=== PATIENT | male | born 1935 ===

== ENCOUNTER 2016-08-27 07:54 | Day surgery (SDC) | payer MEDICARE ==
[2016-08-20 11:30] VITALS: BMI 25.5
[2016-08-27] MEDS ORDERED: Propofol 10 mg/ml Inj (20 ML) ONE ×2 (09:32→09:33)
[2016-08-27] MEDS ORDERED: Lactated Ringer's 1,000 ML IV SCH (10:15)
[2016-08-27 13:50] VITALS: BP 142/74; PULSE 62; RESP 16; TEMP 98; O2SAT 98
== END 2016-08-27 11:55 | disposition home or self-care (01) ==
LOC: ENDO 07:54
PROVIDERS: ATTEND Specialist
DX: Z12.11 Encounter for screening for malignant neoplasm of colon (principal); K59.00 Constipation, unspecified; K57.30 Diverticulosis of large intestine without perforation or abscess without bleeding; K64.8 Other hemorrhoids; E11.9 Type 2 diabetes mellitus without complications; I25.10 Atherosclerotic heart disease of native coronary artery without angina pectoris; I10 Essential (primary) hypertension; E78.5 Hyperlipidemia, unspecified
CPT/HCPCS: 45378; 82948; J2704; J7120

== ENCOUNTER 2018-02-03 17:09 | Observation (INO) | payer MEDICAID, MEDICARE ==
[2018-02-03 17:17] VITALS: BMI 22.1
--- NOTE | 2018-02-03 17:29 | ED PDOC ---
Arrival/HPI - General Chief Complaint: Shortness Of Breath Time Seen by Provider: 02/03/18 17:15 Historian: Patient - History of Present Illness Narrative History of Present Illness (Text): 02/03/18 17:29 Patient is a 82 year old male who presents to the Emergency department with his for chest pain and shortness of breath evaluation. Patient is primarily Japanese speaking and is a poor historian. He reports that his symptoms started 2 months ago and states that his symptoms started 2 months ago. He notes having a history of anemia. Patient denies fevers, chills, cough, abdominal pain, nausea, vomiting, diarrhea, back pain, neck pain, headache, dizziness, or any other complaint. PMD: Time/Duration: > month Symptom Onset: Gradual Symptom Course: Unchanged Context: Home Past Medical History - Provider Review Nursing Documentation Reviewed: Yes - Infectious Disease Hx of Infectious Diseases: None - Tetanus Immunization Tetanus Immunization: Unknown - Cardiac Hx Hypertension: Yes Hx Pacemaker: No - Neurological Hx Paralysis: No - Endocrine/Metabolic Hx Diabetes Mellitus Type 2: Yes - Hematological/Oncological Hx Blood Transfusions: No Hx Blood Transfusion Reaction: No - Musculoskeletal/Rheumatological Hx Musculoskeletal Disorders: Yes Other/Comment: amputation - Gastrointestinal Hx Constipation: Yes - Genitourinary/Gynecological Hx Reproductive Disorders: No - Psychiatric Hx Psychophysiologic Disorder: No Hx Substance Use: No - Surgical History Other/Comment: R toe amputation - Anesthesia Hx Anesthesia: Yes Hx Anesthesia Reactions: No Hx Malignant Hyperthermia: No - Suicidal Assessment Feels Threatened In Home Enviroment: No Family/Social History - Physician Review Nursing Documentation Reviewed: Yes Family/Social History: No Known Family HX Smoking Status: Never Smoked Hx Alcohol Use: No Hx Substance Use: No Allergies/Home Meds Allergies/Adverse Reactions: Allergies No Known Allergies Allergy (Verified 06/28/14 12:42) Home Medications: Home Meds Medication Instructions Recorded Confirmed RX: Metoprolol Tartrate [Lopressor] 25 mg PO BID 07/05/14 02/03/18 RX: Glipizide [Glipizide Xl] 10 mg PO DAILY 08/20/16 02/03/18 RX: Lisinopril [Zestril] 40 mg PO DAILY 08/20/16 02/03/18 RX: Tamsulosin [Flomax] 0.4 mg PO DAILY 08/20/16 02/03/18 RX: metFORMIN [glucOPHAGE] 850 mg PO BID 08/20/16 02/03/18 RX: SITagliptin [Januvia] 1 tab PO DAILY 02/03/18 02/03/18 RX: amLODIPine [Norvasc] 1 tab PO DAILY 02/03/18 02/03/18 Review of Systems - Physician Review All systems were reviewed & negative as marked: Yes - Review of Systems Constitutional: absent: Fevers, Night Sweats Respiratory: SOB. absent: Cough Cardiovascular: Chest Pain Gastrointestinal: absent: Abdominal Pain, Diarrhea, Nausea, Vomiting Genitourinary Male: absent: Urinary Output Changes Musculoskeletal: absent: Back Pain, Neck Pain Neurological: absent: Headache, Dizziness Physical Exam Vital Signs Reviewed: Yes Temperature: Afebrile Blood Pressure: Hypertensive Pulse: Regular Respiratory Rate: Normal Appearance: Positive for: Well-Appearing Mental Status: Positive for: Alert and Oriented X 3 - Systems Exam Head: Present: Atraumatic, Normocephalic Pupils: Present: PERRL Extroacular Muscles: Present: EOMI Conjunctiva: Present: Normal Mouth: Present: Moist Mucous Membranes Neck: Present: Normal Range of Motion Respiratory/Chest: Present: Clear to Auscultation, Good Air Exchange. No: Respiratory Distress, Accessory Muscle Use Cardiovascular: Present: Regular Rate and Rhythm, Normal S1, S2. No: Murmurs Abdomen: No: Tenderness, Distention, Peritoneal Signs Back: Present: Normal Inspection Upper Extremity: Present: Normal Inspection. No: Cyanosis, Edema Lower Extremity: Present: Normal Inspection. No: Edema Neurological: Present: GCS=15, CN II-XII Intact, Speech Normal Skin: Present: Warm, Dry, Normal Color. No: Rashes Psychiatric: Present: Alert, Oriented x 3, Normal Insight, Normal Concentration Medical Decision Making ED Course and Treatment: 02/03/18 17:29 Impression: Patient is a 82 year old male who is complaining of chest pain and shortness of breath for the past 2 months. Differential Diagnosis included but are not limited to: Plan: -- EKG -- Cardiac enzymes -- Blood work -- Labs -- Chest X-ray -- Urinalysis -- Reassess and disposition Prior Visits: Notes and results from previous visits were reviewed. Progress Notes: 02/03/18 17:31 EKG shows NSR at [address]/T wave changes. No changes from previous in 2015. Interpreted by me. 02/03/18 18:29 Discussed case with , who is aware of and agrees to admit patient under her service. - Lab Interpretations I have reviewed the lab results: Yes - RAD Interpretation Narrative RAD Interpretations (Text): 02/03/18 17:38 Chest X-ray shows no acute diseases or processes. Interpreted by me. Supervisor [employer]: ED Physician - EKG Interpretation Interpreted by ED Physician: Yes Type: 12 lead EKG - Scribe Statement The provider has reviewed the documentation as recorded by the Scribe Lawrence Lopez Provider Scribe Attestation: All medical record entries made by the Scribe were at my direction and personally dictated by me. I have reviewed the chart and agree that the record accurately reflects my personal performance of the history, physical exam, medical decision making, and the department course for this patient. I have also personally directed, reviewed, and agree with the discharge instructions and disposition. Disposition/Present on Arrival - Present on Arrival Any Indicators Present on Arrival: No History of DVT/PE: No History of Uncontrolled Diabetes: No Urinary Catheter: No History of Decub. Ulcer: No History Surgical Site Infection Following: None - Disposition Have Diagnosis and Disposition been Completed?: Yes Diagnosis: Chest pain Disposition: HOSPITALIZED Disposition Time: 12:30 Condition: STABLE
[2018-02-03 18:06] LABS: BASO # 0.06 K/mm3 (0.0-2.0); BASO % 0.7 % (0.0-3.0); EOS # 0.1 (0.0-0.7); EOS % 1.5 % (1.5-5.0); GRAN # 5.23 (1.4-6.5); GRAN % 64.6 % (50.0-68.0); HEMOGLOBIN 10.2 g/dL (14.0-18.0); LYMPH # 1.7 (1.2-3.4); LYMPH % 21.3 % (22.0-35.0); MEAN CELL VOLUME 96.3 fl (80.0-105.0); MEAN CORPUSCULAR HEMOGLOBIN 34.2 pg (25.0-35.0); MEAN CORPUSCULAR HGB CONC 35.5 g/dl (31.0-37.0); MEAN PLATELET VOLUME 10.7 fl (7.0-11.0); MONO % 11.9 % (1.0-6.0); RBC 2.98 10^6/uL (3.5-6.1); RED CELL DISTRIBUTION WIDTH 12.9 % (11.5-14.5); WHITE BLOOD COUNT 8.1 10^3/ul (4.5-11.0)
[2018-02-03 18:16] LABS: INR 1.04; PARTIAL THROMBOPLASTIN TIME 29.1 Seconds (25.1-36.5); PROTHROMBIN TIME 11.9 SECONDS (9.4-12.5)
[2018-02-03 18:20] LABS: ALBUMIN 3.7 g/dL (3.0-4.8)
[2018-02-03 18:32] LABS: TROPONIN I 0.02 ng/mL
[2018-02-03] MEDS: Insulin Reg-LOW-Coverage SC SCH (22:14)
[2018-02-03 22:28] LABS: URINE BILIRUBIN NEGATIVE (NEGATIVE); URINE BLOOD TRACE-INTACT (NEGATIVE); URINE GLUCOSE (UA) NEGATIVE (NEGATIVE); URINE LEUKOCYTE ESTERASE NEGATIVE Leu/uL (NEGATIVE); URINE PROTEIN 100 mg/dL (<30 mg/dL); URINE UROBILINOGEN 0.2 E.U./dL (<1 E.U./dL)
[2018-02-03 22:30] LABS: URINE APPEARANCE CLEAR (CLEAR); URINE COLOR YELLOW (YELLOW)
[2018-02-03 22:33] LABS: OSMOLALITY,URINE 341 mosm/kg (300-1000)
[2018-02-03 22:42] LABS: URINE EPITHELIAL CELLS 0 - 2 /hpf (0-5); URINE HYALINE CAST 0 - 2 /hpf; URINE RBC 0 - 2 /hpf (0-2); URINE WBC 0 - 2 /hpf (0-6)
[2018-02-03 22:53] LABS: IRON 71 ug/dL (45-180)
[2018-02-03 22:54] LABS: HDL CHOLESTEROL 22 mg/dL (29-60)
[2018-02-03 23:03] LABS: % IRON SATURATION 23 % (20-55); TOTAL IRON BINDING CAPACITY 304 ug/dL (261-462)
[2018-02-03 23:05] LABS: LDL CHOLESTEROL 67 mg/dL (0-129)
[2018-02-04] MEDS ORDERED: Magnesium Sulfate 2 gm/50 ml 2 GM/50 ML BAG IVPB ONE (05:27)
[2018-02-04 07:14] LABS: HEMOGLOBIN 10.1 g/dL (14.0-18.0); MEAN CELL VOLUME 96.6 fl (80.0-105.0); MEAN CORPUSCULAR HEMOGLOBIN 34.1 pg (25.0-35.0); MEAN CORPUSCULAR HGB CONC 35.3 g/dl (31.0-37.0); MEAN PLATELET VOLUME 10.7 fl (7.0-11.0); RBC 2.96 10^6/uL (3.5-6.1); WHITE BLOOD COUNT 7.4 10^3/ul (4.5-11.0)
[2018-02-04 07:32] LABS: BLOOD UREA NITROGEN 27 mg/dL (7-21); GFR NON-AFRICAN AMERICAN 58
--- NOTE | 2018-02-04 07:59 | CARD ---
APPROVED REPORT Date of service: 02/03/2018 EKG Measurement Heart [id number] <Conclusion> Sinus rhythm with 1st degree AV block Left anterior fascicular block Nonspecific T wave abnormality Abnormal ECG
--- NOTE | 2018-02-04 08:05 | CP.PCM.CON ---
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 Pt is somewhat poor historian changing details. But mostly, patient is complaining of chest pain and shortness of breath over the last 2 months. States that he feels symtoms all day long, worse at night when lying in bed. He can't really describe pain, but states that it is midsternal and non-radiating. He sometimes said that he feels the pain at night and occasionally with CP and SOB with exertion. He also states that CP is sometimes alleviated when he drinks water. He denies any tr ouble swallowing solids or liquids, weight loss, hematemesis, melena nor hematochezia. Reports an occasional cough. As far as BMs, he states that stool is either yellow or white and does reported intermittent constipation with his last BM 2-3 days ago. Per review, had CSPY on 08/27/16 with diverticulosis and internal hemorrhoids. 12 point ROS negative other than stated above MHx: See above SurgHx: R trans met amp Meds: Reviewed in MAR FamHx: Denied GI problems SocHx: Denied x3 All: NKDA Past Patient History - Infectious Disease Hx of Infectious Diseases: None - Tetanus Immunizations Tetanus Immunization: Unknown - Past Social History Smoking Status: Never Smoked - CARDIAC Hx Cardiac Disorders: Yes Hx Hypercholesterolemia: Yes Hx Hypertension: Yes - PULMONARY Hx Respiratory Disorders: No - NEUROLOGICAL Hx Neurological Disorder: No - HEENT Hx HEENT Problems: No - RENAL Hx Chronic Kidney Disease: No - ENDOCRINE/METABOLIC Hx Endocrine Disorders: Yes Hx Diabetes Mellitus Type 2: Yes - HEMATOLOGICAL/ONCOLOGICAL Hx Blood Disorders: No - INTEGUMENTARY Hx Dermatological Problems: No - MUSCULOSKELETAL/RHEUMATOLOGICAL Hx Musculoskeletal Disorders: No Hx Falls: No - GASTROINTESTINAL Hx Gastrointestinal Disorders: No - GENITOURINARY/GYNECOLOGICAL Hx Genitourinary Disorders: No - PSYCHIATRIC Hx Psychophysiologic Disorder: No - SURGICAL HISTORY Hx Surgeries: Yes Hx Amputation: Yes - ANESTHESIA Hx Anesthesia: Yes Hx Anesthesia Reactions: No Hx Malignant Hyperthermia: No Meds Allergies/Adverse Reactions: Allergies Allergy/AdvReac Type Severity Reaction Status Date / Time No Known Allergies Allergy Verified 06/28/14 12:42 - Medications Medications: Current Medications Amlodipine Besylate (Norvasc) 10 mg PO DAILY [facility] Glipizide (Glucotrol Xl) 10 mg PO DAILY [facility] Insulin Human Regular (Humulin R Low) 0 units SC ACHS [facility]; Protocol Last Admin: 02/03/18 22:14 Dose: Not Given Lisinopril (Zestril) 40 mg PO DAILY [facility] Metformin HCl (Glucophage) 850 mg PO BID [facility] Metoprolol Tartrate (Lopressor) 25 mg PO BID [facility] Sitagliptin Phosphate (Januvia) 50 mg PO DAILY [facility] Tamsulosin HCl (Flomax) 0.4 mg PO DAILY [facility] Physical Exam - Constitutional Appears: Well, Non-toxic, No Acute Distress, Chronically Ill - Head Exam Head Exam: ATRAUMATIC, NORMAL INSPECTION - Eye Exam Eye Exam: EOMI. absent: Conjunctival injection, Scleral icterus - ENT Exam ENT Exam: Mucous Membranes Moist. absent: Mucous Membranes Dry, Normal External Ear Exam - Respiratory Exam Respiratory Exam: Clear to Auscultation Bilateral, NORMAL BREATHING PATTERN. absent: Accessory Muscle Use, Chest Wall Tenderness - Cardiovascular Exam Cardiovascular Exam: REGULAR RHYTHM, RRR - GI/Abdominal Exam GI & Abdominal Exam: Normal Bowel Sounds, Soft, Tenderness (LLQ w/o guarding). absent: Bruit, Diminished Bowel Sounds, Distended, Firm, Guarding, Hernia, Orga nomegaly, Pulsatile Mass, Rebound, Rigid - Rectal Exam Rectal Exam: Deferred - Extremities Exam Extremities exam: Positive for: normal inspection. Negative for: pedal edema Additional comments: s/p R foot transmet amp - Neurological Exam Neurological exam: Alert, CN II-XII Intact - Psychiatric Exam Psychiatric exam: Normal Affect, Normal Mood - Skin Skin Exam: Normal Color, Warm Results - Vital Signs Recent Vital Signs: Last Vital Signs Temp 98.3 F 02/04/18 06:00 Pulse 60 02/04/18 06:00 Resp 19 02/04/18 06:00 BP 159/73 H 02/04/18 06:00 Pulse Ox 99 02/04/18 06:00 - Labs Result Diagrams: 02/04/18 06:30 02/04/18 06:30 Labs: Laboratory Results - last 24 hr 02/03/18 02/03/18 02/03/18 17:40 17:40 17:40 WBC 8.1 D RBC 2.98 L Hgb 10.2 L Hct 28.7 L MCV 96.3 MCH 34.2 MCHC 35.5 RDW 12.9 Plt Count 268 MPV 10.7 Gran % 64.6 Lymph % (Auto) 21.3 L [place] % (Auto) 11.9 H Eos % (Auto) 1.5 Baso % (Auto) 0.7 Gran # 5.23 Lymph # (Auto) 1.7 [place] # (Auto) 1.0 H Eos # (Auto) 0.1 Baso # (Auto) 0.06 PT 11.9 INR 1.04 APTT 29.1 Sodium 127 L Potassium 4.9 Chloride 92 L Carbon Dioxide 24 Anion Gap 16 BUN 31 H Creatinine 1.4 Est GFR ( Amer) 59 Est GFR (Non-Af Amer) 49 Random Glucose 161 H Serum Osmolality Calcium 9.0 Magnesium 1.6 L Iron TIBC % Saturation Total Bilirubin 0.7 AST 23 ALT 24 Alkaline Phosphatase 59 Lactate Dehydrogenase 414 Total Creatine Kinase 82 Troponin I 0.02 NT-Pro-B Natriuret Pep 312 Total Protein 7.2 Albumin 3.7 Globulin 3.5 Albumin/Globulin Ratio 1.0 L Triglycerides Cholesterol LDL Cholesterol Direct HDL Cholesterol TSH 3rd Generation Urine Color Urine Appearance Urine pH Ur Specific [place] Urine Protein Urine Glucose (UA) Urine Ketones Urine Blood Urine Nitrate Urine Bilirubin Urine Urobilinogen Ur Leukocyte Esterase Urine RBC Urine WBC Ur Epithelial Cells Urine Bacteria Hyaline Casts Urine Osmolality Ur Random Sodium 02/03/18 02/03/18 02/03/18 17:40 17:40 17:40 WBC RBC Hgb Hct MCV MCH MCHC RDW Plt Count MPV Gran % Lymph % (Auto) [place] % (Auto) Eos % (Auto) Baso % (Auto) Gran # Lymph # (Auto) [place] # (Auto) Eos # (Auto) Baso # (Auto) PT INR APTT Sodium Potassium Chloride Carbon Dioxide Anion Gap BUN Creatinine Est GFR ( Amer) Est GFR (Non-Af Amer) Random Glucose Serum Osmolality 275 Calcium Magnesium Iron 71 TIBC 304 % Saturation 23 Total Bilirubin AST ALT Alkaline Phosphatase Lactate Dehydrogenase Total Creatine Kinase Troponin I NT-Pro-B Natriuret Pep Total Protein Albumin Globulin Albumin/Globulin Ratio Triglycerides 180 H Cholesterol 128 L LDL Cholesterol Direct 67 HDL Cholesterol 22 L TSH 3rd Generation Urine Color Urine Appearance Urine pH Ur Specific [place] Urine Protein Urine Glucose (UA) Urine Ketones Urine Blood Urine Nitrate Urine Bilirubin Urine Urobilinogen Ur Leukocyte Esterase Urine RBC Urine WBC Ur Epithelial Cells Urine Bacteria Hyaline Casts Urine Osmolality Ur Random Sodium 02/03/18 02/03/18 02/04/18 22:17 22:17 06:30 WBC 7.4 RBC 2.96 L Hgb 10.1 L Hct 28.6 L MCV 96.6 MCH 34.1 MCHC 35.3 RDW 13.0 Plt Count 253 MPV 10.7 Gran % Lymph % (Auto) [place] % (Auto) Eos % (Auto) Baso % (Auto) Gran # Lymph # (Auto) [place] # (Auto) Eos # (Auto) Baso # (Auto) PT INR APTT Sodium Potassium Chloride Carbon Dioxide Anion Gap BUN Creatinine Est GFR ( Amer) Est GFR (Non-Af Amer) Random Glucose Serum Osmolality Calcium Magnesium Iron TIBC % Saturation Total Bilirubin AST ALT Alkaline Phosphatase Lactate Dehydrogenase Total Creatine Kinase Troponin I NT-Pro-B Natriuret Pep Total Protein Albumin Globulin Albumin/Globulin Ratio Triglycerides Cholesterol LDL Cholesterol Direct HDL Cholesterol TSH 3rd Generation Urine Color Yellow Urine Appearance Clear Urine pH 6.0 Ur Specific [place] 1.010 Urine Protein 100 H Urine Glucose (UA) Negative Urine Ketones Negative Urine Blood Trace-intact H Urine Nitrate Negative Urine Bilirubin Negative Urine Urobilinogen 0.2 Ur Leukocyte Esterase Negative Urine RBC 0 - 2 Urine WBC 0 - 2 Ur Epithelial Cells 0 - 2 Urine Bacteria None Hyaline Casts 0 - 2 Urine Osmolality 341 Ur Random Sodium 17 02/04/18 02/04/18 06:30 06:30 WBC RBC Hgb Hct MCV MCH MCHC RDW Plt Count MPV Gran % Lymph % (Auto) [place] % (Auto) Eos % (Auto) Baso % (Auto) Gran # Lymph # (Auto) [place] # (Auto) Eos # (Auto) Baso # (Auto) PT INR APTT Sodium 132 Potassium 4.1 Chloride 98 Carbon Dioxide 28 Anion Gap 11 BUN 27 H Creatinine 1.2 Est GFR ( Amer) > 60 Est GFR (Non-Af Amer) 58 Random Glucose 85 Serum Osmolality Calcium 9.0 Magnesium Iron TIBC % Saturation Total Bilirubin AST ALT Alkaline Phosphatase Lactate Dehydrogenase Total Creatine Kinase Troponin I NT-Pro-B Natriuret Pep Total Protein Albumin Globulin Albumin/Globulin Ratio Triglycerides Cholesterol LDL Cholesterol Direct HDL Cholesterol TSH 3rd Generation 1.18 Urine Color Urine Appearance Urine pH Ur Specific [place] Urine Protein Urine Glucose (UA) Urine Ketones Urine Blood Urine Nitrate Urine Bilirubin Urine Urobilinogen Ur Leukocyte Esterase Urine RBC Urine WBC Ur Epithelial Cells Urine Bacteria Hyaline Casts Urine Osmolality Ur Random Sodium Assessment & Plan - Assessment and Plan (Free Text) Assessment: 82 yo Hisp Male with DM2, HTN, HLD presenting with chest pain and shortness of breath. GI consult for possible GERD. # Chest Pain: Atypical. Perhaps related to GERD/GI given worse at night and some relief with water intake. However, given comorbidities and also reported shortness of breath would be more concerned about cardiopulmonary sources as well. No red flag symptoms to warrant EGD at this time. # Constipation: Pt states 3 days since last BM. No bleeding noted. CSPY in August 2016 with diverticulosis and internal hemorrhoids. # Chronic Anemia: Hgb is borderline macrocytic without clear reason. No EtOH nor liver disease. Plan: - CT Chest/Abd/Pelvis with PO Contrast (no IV) - Pantoprazole 40 mg QD, 30 min before first meal of day - Agree with Cardiology evaluation for cardiac cause of CP/SOB - Miralax daily - Will consider EGD pending CT and Cardiology evaluation - Rec Hematology eval for chronic anemia Thank you for the consult. Will cont to follow Pt seen and examined with Dr. Larsen; please see attestation for further recs/changes <Angela Larsen V - Last Filed: 02/04/18 23:35> Meds - Medications Medications: Current Medications Albuterol/Ipratropium (Duoneb 3 Mg/0.5 Mg (3 Ml) Ud) 3 ml IH [id number] [facility] Amlodipine Besylate (Norvasc) 10 mg PO DAILY [facility] Last Admin: 02/04/18 10:26 Dose: 10 mg Cyanocobalamin (Vitamin B12 1000 Mcg/Ml Inj) 1,000 mcg IM DAILY [facility] Glipizide (Glucotrol Xl) 10 mg PO DAILY [facility] Last Admin: 02/04/18 10:27 Dose: 10 mg Hydralazine HCl (Apresoline) 10 mg IVP Q6 PRN PRN Reason: hypertension Insulin Human Regular (Humulin R Low) 0 units SC ACHS [facility]; Protocol Last Admin: 10/04/18 17:51 Dose: 1 unit Lisinopril (Zestril) 40 mg PO DAILY [facility] Last Admin: 02/04/18 10:27 Dose: 40 mg Metformin HCl (Glucophage) 850 mg PO BID [facility] Last Admin: 02/04/18 17:51 Dose: 850 mg Metoprolol Tartrate (Lopressor) 25 mg PO BID [facility] Last Admin: 02/04/18 17:51 Dose: 25 mg Pantoprazole Sodium (Protonix Ec Tab) 40 mg PO 0600 [facility] Polyethylene Glycol (Miralax) 17 gm PO DAILY [facility] Last Admin: 02/04/18 12:49 Dose: 17 gm Sitagliptin Phosphate (Januvia) 50 mg PO DAILY [facility] Last Admin: 02/04/18 10:27 Dose: 50 mg Tamsulosin HCl (Flomax) 0.4 mg PO DAILY [facility] Last Admin: 02/04/18 10:26 Dose: 0.4 mg Results - Vital Signs Recent Vital Signs: Last Vital Signs Temp 98.8 F 02/04/18 18:00 Pulse 69 02/04/18 18:00 Resp 18 02/04/18 18:00 BP 110/73 02/04/18 18:00 Pulse Ox 99 02/04/18 06:00 - Labs Result Diagrams: 02/04/18 06:30 02/04/18 06:30 Labs: Laboratory Results - last 24 hr 02/03/18 02/03/18 02/03/18 17:40 17:40 22:12 WBC RBC Hgb Hct MCV MCH MCHC RDW Plt Count MPV Sodium Potassium Chloride Carbon Dioxide Anion Gap BUN Creatinine Est GFR ( Amer) Est GFR (Non-Af Amer) POC Glucose (mg/dL) 91 Random Glucose Hemoglobin A1c 10.2 H D Calcium Lactate Dehydrogenase Total Creatine Kinase Troponin I Vitamin B12 Cancelled Folate Cancelled TSH 3rd Generation 02/04/18 02/04/18 02/04/18 06:00 06:30 06:30 WBC 7.4 RBC 2.96 L Hgb 10.1 L Hct 28.6 L MCV 96.6 MCH 34.1 MCHC 35.3 RDW 13.0 Plt Count 253 MPV 10.7 Sodium 132 Potassium 4.1 Chloride 98 Carbon Dioxide 28 Anion Gap 11 BUN 27 H Creatinine 1.2 Est GFR ( Amer) > 60 Est GFR (Non-Af Amer) 58 POC Glucose (mg/dL) Random Glucose 85 Hemoglobin A1c Calcium 9.0 Lactate Dehydrogenase Total Creatine Kinase Troponin I Vitamin B12 231 L Folate 8.7 TSH 3rd Generation 02/04/18 02/04/18 02/04/18 06:30 06:30 07:41 WBC RBC Hgb Hct MCV MCH MCHC RDW Plt Count MPV Sodium Potassium Chloride Carbon Dioxide Anion Gap BUN Creatinine Est GFR ( Amer) Est GFR (Non-Af Amer) POC Glucose (mg/dL) 88 Random Glucose Hemoglobin A1c Calcium Lactate Dehydrogenase 390 Total Creatine Kinase 74 Troponin I 0.04 D Vitamin B12 Folate TSH 3rd Generation 1.18 02/04/18 02/04/18 02/04/18 10:16 12:07 17:38 WBC RBC Hgb Hct MCV MCH MCHC RDW Plt Count MPV Sodium Potassium Chloride Carbon Dioxide Anion Gap BUN Creatinine Est GFR ( Amer) Est GFR (Non-Af Amer) POC Glucose (mg/dL) 195 H 177 H 152 H Random Glucose Hemoglobin A1c Calcium Lactate Dehydrogenase Total Creatine Kinase Troponin I Vitamin B12 Folate TSH 3rd Generation Attending/Attestation - Attestation I have personally seen and examined this patient.: Yes I have fully participated in the care of the patient.: Yes I have reviewed all pertinent clinical information: Yes Notes (Text): This is an addendum to GI consult report dictated by the GI Fellow.The patient was seen and examined earlier. Medical records, lab studies, imagings were reviewed. Last 24 hours events reviewed. Agreed with the above treatment plan as outlined in GI Fellow 's notes with the addition of the following This 82 year old patient with a past medical history of DM, hypertension, HLD, admitted with chest pain, epigastric pain, and macrocytic anemia Patient had a colonoscopy on 4m 17yr and was found to have diverticulosis and internal hemorrhoids On examination abdomen soft Mild tenderness of depalpation in epigastric area Review of the labs showed Hb 10.1 MCV 96.6 The differential diagnosis for atypical chest pain should include PUD, erosive esophagitis and also neoplasia should be considered Colelitiasis should be considered in the differential diagnosis Patient has a chronic macrocytic anemia and would benefit from hematological evaluation Recommend iron studies B12 and folate CT scan of abdomen and pelvis with PO contrast Ultrasound of the abdomen to rule out gallstones Hematological consult Dr. Klein Would consider EGD if cleared by cardiology after reviewing the above workup 02/04/18 23:25
[2018-02-04 08:22] LABS: TROPONIN I 0.04 ng/mL
[2018-02-04] MEDS: Insulin Reg-LOW-Coverage SC SCH ×4 (08:23→23:27)
--- NOTE | 2018-02-04 09:52 | RAD ---
Date of service: 02/03/2018 HISTORY: Chest pain COMPARISON: 06/28/2014 FINDINGS: LUNGS: The lungs are well inflated and clear. PLEURA: No significant pleural effusion identified, no pneumothorax apparent. CARDIOVASCULAR: Normal. OSSEOUS STRUCTURES: No significant abnormalities. VISUALIZED UPPER ABDOMEN: Normal. OTHER FINDINGS: None. IMPRESSION: No active pulmonary disease.
[2018-02-04] MEDS: GlipiZIDE 10 mg SR Tab PO SCH (10:27)
[2018-02-04] MEDS ORDERED: Barium Sulfate Susp 2.1% w/v, 2.0% w/w 450 mL Bottle PO ONE (10:34)
--- NOTE | 2018-02-04 11:27 | CP.PCM.CON ---
History of Present Illness - History of Present Illness History of Present Illness: Awake, alert, denies chest pain now, no distress, denies shortness of breath Reason for consultation: Cardiac evaluation of chest pain and shortness of breath Brief history of present illness: An 82 year old male who came in to the ER due to chest pain and shortness of breath. Mid-sternal chest pain non radiating at rest associated with shortness of breath, denies diaphoresis. claimed to be off and on for the past 2 months. Poor historian. History of hypertension, hypercholesterolemia, diabetes mellitus,amputation of right foot metatarsal. Seen and examined by me and Dr. Ray Review of Systems - Review of Systems All systems: reviewed and no additional remarkable complaints except Review of Systems: from HPI Past Patient History - Infectious Disease Hx of Infectious Diseases: None - Tetanus Immunizations Tetanus Immunization: Unknown - Past Social History Smoking Status: Never Smoked - CARDIAC Hx Cardiac Disorders: Yes Hx Hypercholesterolemia: Yes Hx Hypertension: Yes - PULMONARY Hx Respiratory Disorders: No - NEUROLOGICAL Hx Neurological Disorder: No - HEENT Hx HEENT Problems: No - RENAL Hx Chronic Kidney Disease: No - ENDOCRINE/METABOLIC Hx Endocrine Disorders: Yes Hx Diabetes Mellitus Type 2: Yes - HEMATOLOGICAL/ONCOLOGICAL Hx Blood Disorders: No - INTEGUMENTARY Hx Dermatological Problems: No - MUSCULOSKELETAL/RHEUMATOLOGICAL Hx Musculoskeletal Disorders: No Hx Falls: No - GASTROINTESTINAL Hx Gastrointestinal Disorders: No - GENITOURINARY/GYNECOLOGICAL Hx Genitourinary Disorders: No - PSYCHIATRIC Hx Psychophysiologic Disorder: No - SURGICAL HISTORY Hx Surgeries: Yes Hx Amputation: Yes - ANESTHESIA Hx Anesthesia: Yes Hx Anesthesia Reactions: No Hx Malignant Hyperthermia: No Meds Allergies/Adverse Reactions: Allergies Allergy/AdvReac Type Severity Reaction Status Date / Time No Known Allergies Allergy Verified 06/28/14 12:42 - Medications Medications: Current Medications Amlodipine Besylate (Norvasc) 10 mg PO DAILY [facility] Last Admin: 02/04/18 10:26 Dose: 10 mg Glipizide (Glucotrol Xl) 10 mg PO DAILY [facility] Last Admin: 02/04/18 10:27 Dose: 10 mg Insulin Human Regular (Humulin R Low) 0 units SC [facility]; Protocol Last Admin: 02/04/18 08:23 Dose: Not Given Lisinopril (Zestril) 40 mg PO DAILY [facility] Last Admin: 02/04/18 10:27 Dose: 40 mg Metformin HCl (Glucophage) 850 mg PO BID [facility] Last Admin: 02/04/18 10:26 Dose: 850 mg Metoprolol Tartrate (Lopressor) 25 mg PO BID [facility] Last Admin: 02/04/18 10:26 Dose: 25 mg Pantoprazole Sodium (Protonix Ec Tab) 40 mg PO 0600 [facility] Polyethylene Glycol (Miralax) 17 gm PO DAILY [facility] Sitagliptin Phosphate (Januvia) 50 mg PO DAILY [facility] Last Admin: 02/04/18 10:27 Dose: 50 mg Tamsulosin HCl (Flomax) 0.4 mg PO DAILY [facility] Last Admin: 02/04/18 10:26 Dose: 0.4 mg Physical Exam - Constitutional Appears: Non-toxic, No Acute Distress - Eye Exam Eye Exam: Normal appearance - ENT Exam ENT Exam: Mucous Membranes Moist - Neck Exam Neck exam: Positive for: Full Rom, Normal Inspection - Respiratory Exam Respiratory Exam: Decreased Breath Sounds, Clear to Auscultation Bilateral, NORMAL BREATHING PATTERN - Cardiovascular Exam Cardiovascular Exam: Bradycardia, +S1, +S2 Additional comments: telemetry sinus bradycardia 50's denies chest pain now, denies shortness of breath chest no tenderness - GI/Abdominal Exam GI & Abdominal Exam: Normal Bowel Sounds, Soft - Extremities Exam Additional comments: right foot metatarsal amputation - Neurological Exam Neurological exam: Alert, Oriented x3 - Psychiatric Exam Psychiatric exam: Normal Affect, Normal Mood - Skin Skin Exam: Dry, Intact, Normal Color, Warm Results - Vital Signs Recent Vital Signs: Last Vital Signs Temp 98.3 F 02/04/18 06:00 Pulse 70 02/04/18 10:26 Resp 19 02/04/18 06:00 BP 169/82 H 02/04/18 10:26 Pulse Ox 99 02/04/18 06:00 - Labs Result Diagrams: 02/04/18 06:30 02/04/18 06:30 Labs: Laboratory Results - last 24 hr 02/03/18 02/03/18 02/03/18 17:40 17:40 17:40 WBC 8.1 D RBC 2.98 L Hgb 10.2 L Hct 28.7 L MCV 96.3 MCH 34.2 MCHC 35.5 RDW 12.9 Plt Count 268 MPV 10.7 Gran % 64.6 Lymph % (Auto) 21.3 L [place] % (Auto) 11.9 H Eos % (Auto) 1.5 Baso % (Auto) 0.7 Gran # 5.23 Lymph # (Auto) 1.7 [place] # (Auto) 1.0 H Eos # (Auto) 0.1 Baso # (Auto) 0.06 PT 11.9 INR 1.04 APTT 29.1 Sodium 127 L Potassium 4.9 Chloride 92 L Carbon Dioxide 24 Anion Gap 16 BUN 31 H Creatinine 1.4 Est GFR ( Amer) 59 Est GFR (Non-Af Amer) 49 POC Glucose (mg/dL) Random Glucose 161 H Serum Osmolality Calcium 9.0 Magnesium 1.6 L Iron TIBC % Saturation Total Bilirubin 0.7 AST 23 ALT 24 Alkaline Phosphatase 59 Lactate Dehydrogenase 414 Total Creatine Kinase 82 Troponin I 0.02 NT-Pro-B Natriuret Pep 312 Total Protein 7.2 Albumin 3.7 Globulin 3.5 Albumin/Globulin Ratio 1.0 L Triglycerides Cholesterol LDL Cholesterol Direct HDL Cholesterol Vitamin B12 Folate TSH 3rd Generation Urine Color Urine Appearance Urine pH Ur Specific [place] Urine Protein Urine Glucose (UA) Urine Ketones Urine Blood Urine Nitrate Urine Bilirubin Urine Urobilinogen Ur Leukocyte Esterase Urine RBC Urine WBC Ur Epithelial Cells Urine Bacteria Hyaline Casts Urine Osmolality Ur Random Sodium 02/03/18 02/03/18 02/03/18 17:40 17:40 17:40 WBC RBC Hgb Hct MCV MCH MCHC RDW Plt Count MPV Gran % Lymph % (Auto) [place] % (Auto) Eos % (Auto) Baso % (Auto) Gran # Lymph # (Auto) [place] # (Auto) Eos # (Auto) Baso # (Auto) PT INR APTT Sodium Potassium Chloride Carbon Dioxide Anion Gap BUN Creatinine Est GFR ( Amer) Est GFR (Non-Af Amer) POC Glucose (mg/dL) Random Glucose Serum Osmolality 275 Calcium Magnesium Iron 71 TIBC 304 % Saturation 23 Total Bilirubin AST ALT Alkaline Phosphatase Lactate Dehydrogenase Total Creatine Kinase Troponin I NT-Pro-B Natriuret Pep Total Protein Albumin Globulin Albumin/Globulin Ratio Triglycerides 180 H Cholesterol 128 L LDL Cholesterol Direct 67 HDL Cholesterol 22 L Vitamin B12 Cancelled Folate Cancelled TSH 3rd Generation Urine Color Urine Appearance Urine pH Ur Specific [place] Urine Protein Urine Glucose (UA) Urine Ketones Urine Blood Urine Nitrate Urine Bilirubin Urine Urobilinogen Ur Leukocyte Esterase Urine RBC Urine WBC Ur Epithelial Cells Urine Bacteria Hyaline Casts Urine Osmolality Ur Random Sodium 02/03/18 02/03/18 02/03/18 22:12 22:17 22:17 WBC RBC Hgb Hct MCV MCH MCHC RDW Plt Count MPV Gran % Lymph % (Auto) [place] % (Auto) Eos % (Auto) Baso % (Auto) Gran # Lymph # (Auto) [place] # (Auto) Eos # (Auto) Baso # (Auto) PT INR APTT Sodium Potassium Chloride Carbon Dioxide Anion Gap BUN Creatinine Est GFR ( Amer) Est GFR (Non-Af Amer) POC Glucose (mg/dL) 91 Random Glucose Serum Osmolality Calcium Magnesium Iron TIBC % Saturation Total Bilirubin AST ALT Alkaline Phosphatase Lactate Dehydrogenase Total Creatine Kinase Troponin I NT-Pro-B Natriuret Pep Total Protein Albumin Globulin Albumin/Globulin Ratio Triglycerides Cholesterol LDL Cholesterol Direct HDL Cholesterol Vitamin B12 Folate TSH 3rd Generation Urine Color Yellow Urine Appearance Clear Urine pH 6.0 Ur Specific [place] 1.010 Urine Protein 100 H Urine Glucose (UA) Negative Urine Ketones Negative Urine Blood Trace-intact H Urine Nitrate Negative Urine Bilirubin Negative Urine Urobilinogen 0.2 Ur Leukocyte Esterase Negative Urine RBC 0 - 2 Urine WBC 0 - 2 Ur Epithelial Cells 0 - 2 Urine Bacteria None Hyaline Casts 0 - 2 Urine Osmolality 341 Ur Random Sodium 17 02/04/18 02/04/18 02/04/18 06:30 06:30 06:30 WBC 7.4 RBC 2.96 L Hgb 10.1 L Hct 28.6 L MCV 96.6 MCH 34.1 MCHC 35.3 RDW 13.0 Plt Count 253 MPV 10.7 Gran % Lymph % (Auto) [place] % (Auto) Eos % (Auto) Baso % (Auto) Gran # Lymph # (Auto) [place] # (Auto) Eos # (Auto) Baso # (Auto) PT INR APTT Sodium 132 Potassium 4.1 Chloride 98 Carbon Dioxide 28 Anion Gap 11 BUN 27 H Creatinine 1.2 Est GFR ( Amer) > 60 Est GFR (Non-Af Amer) 58 POC Glucose (mg/dL) Random Glucose 85 Serum Osmolality Calcium 9.0 Magnesium Iron TIBC % Saturation Total Bilirubin AST ALT Alkaline Phosphatase Lactate Dehydrogenase Total Creatine Kinase Troponin I NT-Pro-B Natriuret Pep Total Protein Albumin Globulin Albumin/Globulin Ratio Triglycerides Cholesterol LDL Cholesterol Direct HDL Cholesterol Vitamin B12 Folate TSH 3rd Generation 1.18 Urine Color Urine Appearance Urine pH Ur Specific [place] Urine Protein Urine Glucose (UA) Urine Ketones Urine Blood Urine Nitrate Urine Bilirubin Urine Urobilinogen Ur Leukocyte Esterase Urine RBC Urine WBC Ur Epithelial Cells Urine Bacteria Hyaline Casts Urine Osmolality Ur Random Sodium 02/04/18 02/04/18 06:30 07:41 WBC RBC Hgb Hct MCV MCH MCHC RDW Plt Count MPV Gran % Lymph % (Auto) [place] % (Auto) Eos % (Auto) Baso % (Auto) Gran # Lymph # (Auto) [place] # (Auto) Eos # (Auto) Baso # (Auto) PT INR APTT Sodium Potassium Chloride Carbon Dioxide Anion Gap BUN Creatinine Est GFR ( Amer) Est GFR (Non-Af Amer) POC Glucose (mg/dL) 88 Random Glucose Serum Osmolality Calcium Magnesium Iron TIBC % Saturation Total Bilirubin AST ALT Alkaline Phosphatase Lactate Dehydrogenase 390 Total Creatine Kinase 74 Troponin I 0.04 D NT-Pro-B Natriuret Pep Total Protein Albumin Globulin Albumin/Globulin Ratio Triglycerides Cholesterol LDL Cholesterol Direct HDL Cholesterol Vitamin B12 Folate TSH 3rd Generation Urine Color Urine Appearance Urine pH Ur Specific [place] Urine Protein Urine Glucose (UA) Urine Ketones Urine Blood Urine Nitrate Urine Bilirubin Urine Urobilinogen Ur Leukocyte Esterase Urine RBC Urine WBC Ur Epithelial Cells Urine Bacteria Hyaline Casts Urine Osmolality Ur Random Sodium Assessment & Plan - Assessment and Plan (Free Text) Assessment: An 82 year old male who came in to the ER due to chest pain and shortness of breath. Mid-sternal chest pain non radiating at rest associated with shortness of breath, denies diaphoresis. claimed to be off and on for the past 2 months. Poor historian. History of hypertension, BPH, hypercholesterolemia, diabetes mellitus,amputation of right foot metatarsal. Denies chest pain now or shortness of breath. EKG showed NSR with non specific ST-T wave changes. Chest Xray-unremarkable. Initial Troponin 0.02, Repeat 0.04. Serial troponin level.Will order stress test and Echo. No previous cardiac work up at [facility] [place]. Atypical chest pain. Plan: Atypical chest pain, denies chest pain or shortness of breath now Will order Stress test to rule out ischemia Will order Echo to evaluate LV function Heart rate stable Blood pressure uncontrolled PRN Hydralazine On Norvasc 10 mg daily,Lisinopril 40 mg daily,Lopressor 25 mg BID, Flomax 0.4 mg daily. Continue current medications Continue current treatment Chart reviewed Will follow up Further recommendations during hospital course Plan and treatment discussed with Dr. Ray Thank you Dr. Carey for the opportunity of taking of Mr. Alvaro Shipmanlurdes Whalen. - Date & Time Date: 02/04/18 Time: 06:30
[2018-02-04] MEDS: POLYETHYLENE GLYCOL 3350 17 GM/Dose PACKET PO SCH (12:49)
[2018-02-04 17:17] LABS: FOLATE 8.7 ng/mL
--- NOTE | 2018-02-04 19:37 | CARD ---
APPROVED REPORT Date of service: 02/04/2018 EXAM: Two-dimensional and M-mode echocardiogram with Doppler and color Doppler. INDICATION LV Function:SystolicDiastolic Chest Pain 2D DIMENSIONS Left Atrium (2D)4.1 (1.6-4.0cm)IVSd1.4 (0.7-1.1cm) LVDd4.2 (3.9-5.9cm)PWd1.3 (0.7-1.1cm) LVDs3.1 (2.5-4.0cm)FS (%) 25.7 % LVEF (%)51.0 (>50%) M-Mode DIMENSIONS Aortic Root2.80 (2.2-3.7cm)Aortic Cusp Exc.1.80 (1.5-2.0cm) Aortic Valve AoV Peak [id number]/Jade Peak GR.5mmHg Mitral Valve E/A ratio0.0 TDI E/Lateral E'0.0E/Medial E'0.0 Tricuspid Valve TR Peak [id number] [id number] Peak Gr.27mmHg [id number] LEFT VENTRICLE The left ventricle is normal size. There is borderline to mild concentric left ventricular hypertrophy. Left ventricle systolic function is low normal.EF-50-55% There is mild hypokinesis in the apical anterior wall. Transmitral Doppler flow pattern is Grade III-reversible restrictive diastolic dysfunction. No left ventricle thrombus noted on this study. There is no ventricular septal defect visualized. There is no left ventricular aneurysm. There is no mass noted in the left ventricle. RIGHT VENTRICLE The right ventricle is normal size. There is normal right ventricular wall thickness. The right ventricular systolic function is normal. ATRIA The left atrium is mildly dilated. The right atrium size is normal. The interatrial septum is intact with no evidence for an atrial septal defect. AORTIC VALVE The aortic valve is thickened but opens well. The aortic valve is mildly to moderately sclerotic. No aortic regurgitation is present. There is no aortic valvular stenosis. There is no aortic valvular vegetation. MITRAL VALVE The mitral valve is thickened but opens well. Mitral annular calcification is moderate. Mitral regurgitation is trace to mild. There is no mitral valve stenosis. There is no evidence of mitral valve prolapse. TRICUSPID VALVE The tricuspid valve leaflets are thickened , but open well. There is mild tricuspid regurgitation.RVSP-37 mmof hg. There is no tricuspid valve stenosis. There is no tricuspid valve prolapse or vegetation. PULMONIC VALVE The pulmonary valve is normal in structure. There is no pulmonic valvular regurgitation. There is no pulmonic valvular stenosis. GREAT VESSELS The aortic root is normal in size. The ascending aorta is normal in size. The pulmonary artery is normal. The IVC is normal in size and collapses >50% with inspiration. PERICARDIAL EFFUSION There is no pleural effusion. There is no pericardial effusion. <Conclusion> The left ventricle is normal size. There is borderline to mild concentric left ventricular hypertrophy. Left ventricle systolic function is low normal.EF-50-55% Mitral regurgitation is trace to mild. There is mild tricuspid regurgitation.RVSP-37 mmof hg. The IVC is normal in size and collapses >50% with inspiration. There is no pericardial effusion.
--- NOTE | 2018-02-04 21:34 | CON ---
DATE: 02/04/2018 CONSULT REQUESTED BY: Luisa Carey MD. REASON FOR CONSULTATION: Chronic anemia. HISTORY OF PRESENT ILLNESS: Mr. Wolfe is an 82-year-old male presented to the ED with chest pain and shortness of breath. stated that he has these symptoms for 2 months. He has history of chronic anemia. Denies any fevers, chills, or rigors. No abdominal pain. No nausea. No vomiting. No bleeding from any site. Records in [facility] reviewed dating back to year 2010. Iron studies done today showed normal iron studies. B12 is low at 231. Hemoglobin has been declining steadily over the past few years. In 2014, hemoglobin was in the range of 10 to 11 g/dL. MCV is on the higher side, macrocytic ranging from 96-100. Creatinine has been normal. He has diabetes mellitus, uncontrolled. Hemoglobin A1c is 10. He has history of GERD in the past. No symptoms right now. PAST MEDICAL HISTORY: Hypertension; GERD; diabetes mellitus type 2, uncontrolled; history of chronic constipation; right toe amputation. PAST SURGICAL HISTORY: Right toe amputation. FAMILY HISTORY: Noncontributory. PERSONAL HISTORY: Never smoked. No history of alcohol abuse. ALLERGIES: NO KNOWN DRUG ALLERGIES. HOME MEDICATIONS: Lopressor 25 mg p.o. b.i.d., glipizide 10 mg p.o. daily, lisinopril 40 mg daily, Flomax 0.4 mg p.o. daily, metformin 850 b.i.d., Januvia 1 tablet daily, and Norvasc 10 mg daily. REVIEW OF SYSTEMS: As per HPI. Rest of 12-point review of systems is reviewed and negative. PHYSICAL EXAMINATION: GENERAL: Comfortable in bed, in no acute distress. VITAL SIGNS: Stable. Temperature 98.6, heart rate 80 per minute, blood pressure 120/70, respiratory rate 18 per minute. HEENT: Pallor positive. NECK: No lymphadenopathy. CHEST: Air entry present and equal bilaterally. No added sounds. CARDIOVASCULAR: S1 and S2 normal. No murmur, no gallop. ABDOMEN: Soft, nontender. No hepatosplenomegaly. EXTREMITIES: No edema. CENTRAL NERVOUS SYSTEM: Alert and oriented x3. No focal sensory or motor deficit. SKIN: Warm and dry. Pallor positive. No petechiae. No rash. EKG shows normal sinus rhythm. No ST-T changes. Chest x-ray, no infiltrate. CT chest, abdomen, and pelvis ordered. LABORATORY DATA: White count 8.1, hemoglobin 10.2, hematocrit 28.7, MCV 96, platelets 268. Sodium 127, potassium 4.9, creatinine 1.4. A1c 10.2. Magnesium 1.6. Iron 71. Iron saturation 23. Bilirubin 0.7. AST 23, ALT 24, LDH 59. B12 of 231. Folate 8.7. TSH 1.1. ASSESSMENT AND PLAN: 1. Chronic anemia; it is macrocytic, hemoglobin is 10.2. Review of records dating back to 2010 showed his hemoglobin has been steadily declining since 2014. It was 11, declined to 10.2, it is macrocytic. Iron studies are normal. Renal functions are within normal limit. He has diabetes mellitus, uncontrolled. Anemia, likely multifactorial due to B12 deficiency, chronic disease (diabetes mellitus, uncontrolled). There is a possibility of myelodysplasia because of macrocytosis and steady decline in hemoglobin. We will replete the B12, 1 mg IM daily for a week and then weekly for 4 doses followed by monthly. We will do workup for pernicious anemia, intrinsic factor antibody, and antiparietal cell antibody will be ordered. We will continue to monitor his hemoglobin closely. If hemoglobin declines below 10, we will do a bone marrow aspiration biopsy to rule out myelodysplasia. We will do stool occult blood, SPEP, immunofixation, light chain assay. 2. Renal functions within normal limits, normal electrolytes. 3. Diabetes mellitus type 2, uncontrolled. Management as per Dr. Carey. 4. Hypertension. Blood pressure controlled on current medications. 5. Chest pain, being evaluated by Cardiology. Workup in progress. Thank you, Dr. Carey, for allowing us to participate in Mr. John's care. We will continue care. Katerin Klein MD
[2018-02-05] MEDS: Albuterol-Ipratrop 3 mg / 0.5 (3 ml) UD IH SCH ×4 (02:17→19:47)
--- NOTE | 2018-02-05 02:37 | CON ---
DATE: 02/04/2018 REASON FOR CONSULTATION: Cardiac evaluation for chest pain. BRIEF HISTORY: This is an 82-year-old Togolese speaking male, very poor historian, admitted with chest pain, claims that dyspnea on exertion, sometimes he not sure. Denies any diaphoresis. History of diabetes in the past, hypotension, peripheral arterial disease - status post amputation of right forefoot. So far troponin remains negative, we will schedule for a stress test. We will add on one troponin. If the troponin remains negative, we will schedule for echo, stress, lipid profile, TSH. Further recommendation after the stress test. We will follow with you. Thank you, Dr. Carey, for providing us the opportunity in taking care of patient, Alvaro Whalen. Jenna Ray MD
[2018-02-05] MEDS: Pantoprazole 40 mg EC Tab PO SCH (05:56)
--- NOTE | 2018-02-05 06:37 | HP ---
The patient was seen and examined at the bedside on 02/04/2018. HISTORY OF PRESENT ILLNESS: Mr. Alvaro Whalen is an 82-year-old male with chest pain, shortness of breath. The patient speaks Italian, and is a poor historian. Actually, the patient was seen in my office yesterday with chest pain, shortness of breath, abdominal pain. Labs are normal. I sent the patient to the emergency room. The patient is very noncompliant as outpatient for procedures. He reports that his symptoms started 2 months ago and states that he noticed to having history of anemia. Denies fever, chills, cough, nausea, vomiting, diarrhea, back pain, or neck pain. No fever. No chills. Readmitted the patient, was consulted with GI to rule out GI cause of anemia. CAT scan of chest, abdomen, and pelvis done. Seen by the corrugated fastener driver. Discussion done with Dr. Larsen. Need anemia workup. PAST MEDICAL HISTORY: As above, hypertension, diabetes mellitus, amputation of the toes, constipation. FAMILY HISTORY: Father and mother, noncontributory. HABITS: No smoking. No drugs. No ethanol. ALLERGIES: THE PATIENT IS NOT ALLERGIC WITH ANY MEDICATIONS. HOME MEDICATIONS: Metoprolol, glipizide, Zestril, Flomax, metformin, Januvia, Norvasc. REVIEW OF SYSTEMS: The patient was seen and examined at the bedside, looking comfortable. Two sisters were standing on the bedside, also still having shortness of breath, chest pain, abdominal pain. No fever. No chills. No back pain. No headache. No dizziness. PHYSICAL EXAMINATION: VITAL SIGNS: Temperature is 97, pulse 62, blood pressure 110/76, respiratory rate 21. HEENT: Head is normocephalic and atraumatic. Eyes; PERRLA. Extraocular muscles are intact. Conjunctivae are clear. Nose is patent. Mucous membranes are moist. NECK: Supple. No carotid bruit. No JVD or thyromegaly. CHEST: Bilaterally symmetrical. HEART: S1 and S2 positive. LUNGS: Clear to auscultation. ABDOMEN: Soft. Bowel sounds are present. No organomegaly. EXTREMITIES: No edema. No cyanosis. NEUROLOGIC: The patient is awake and alert. Moving all 4 extremities. No focal deficits. LABORATORY DATA: White blood cell is 7.4, hemoglobin 10.1, hematocrit 28.6, and platelets 253. Glucose 152. Sodium 132, potassium 4.1, BUN 27, creatinine 1.2, glucose 85. Hemoglobin A1c 10.1. ASSESSMENT AND PLAN: Mr. Alvaro Whalen is an 82-year-old male with uncontrolled diabetes mellitus, anemia. CAT scan of the abdomen and pelvis done, results are pending. Echocardiography done. Seen by the corrugated fastener driver. History of shortness of breath with chest pain, non-radiating at rest associated with shortness of breath; benign prostatic hyperplasia; hypercholesterolemia; amputation of the toes. Troponin is 0.02, repeat is 0.04. Serial troponin level. Needs stress test and echo as per Cardiology. [place] previous cardiac [place] [facility] chest pain looks atypical. Waiting for a stress test. Heart rate is stable. Blood pressure is uncontrolled. Added hydralazine and Norvasc. Discussion done with Dr. Larsen to rule out because of macrocytic anemia and need age-appropriated GI workup. Gastroesophageal reflux disease, history of constipation. Continue pantoprazole. Started MiraLax. Consider EGD. Talked to Hematology. We will continue present treatment. Length of time discussion done with the family sister was around. All questions answered. We will follow. Luisa Carey MD [email or web address]
--- NOTE | 2018-02-05 06:49 | CON ---
DATE: 02/04/2018 PULMONARY CONSULTATION REFERRING PHYSICIAN: Dr. Carey REASON FOR CONSULTATION: Short of breath, chest pain. HISTORY OF PRESENT ILLNESS: This is an 82-year-old gentleman, primarily Green[place]ic speaking, with symptoms of chest pain and shortness of breath, has a history of anemia, constipation, diabetes, abdominal pain. No dysuria. No leg pain or leg swelling. PAST MEDICAL HISTORY: As per history of present illness. FAMILY HISTORY: No significant cardiopulmonary disease reported. SOCIAL HISTORY: Denies any smoking or alcohol use. ALLERGIES: NONE KNOWN. MEDICATIONS: He is on hydralazine 10 mg every 6 hours p.r.n., Flomax 0.4 mg daily, metformin 850 mg twice a day, glipizide XL 10 mg daily, insulin coverage, Januvia 50 mg daily, metoprolol tartrate 25 mg twice a day, MiraLax 17 g daily, Norvasc 10 mg daily, Protonix 40 mg daily, vitamin B12 1000 mcg daily, Zestril 40 mg daily. REVIEW OF SYSTEMS: No headache, no rhinitis. Has a short of breath on exertion. Chest pain. No nausea. Mild abdominal pain. No dysuria, leg pain or leg swelling. PHYSICAL EXAMINATION: GENERAL: Lying in the bed in no acute distress. VITAL SIGNS: Temperature is 98, heart rate is 82, respiratory rate is 20, blood pressure 110/73, pulse ox 99% on room air. HEENT: Moist mucous membranes. Crowded airway. NECK: Supple. No JVD. LUNGS: Have fair airflow with rhonchi. HEART: S1 and S2. ABDOMEN: Soft. Mild tenderness. EXTREMITIES: No edema. NEUROLOGIC: Awake and alert, follows simple commands. LABORATORY DATA: Shows hemoglobin 10.1, hematocrit 28.6, WBC 7.4, platelet is 253. INR 1.04. PTT 29. Blood sugar is 88. LDH 390. Troponin less than 0.04. Sodium 132, potassium 4.1, chloride 98, bicarbonate 28, BUN 27, creatinine 1.2, glucose 85, calcium is 9. Vitamin B12 is 231. Folate is 8.7. Urinalysis shows wbc's 0 to 2. Had a chest x-ray done in ER. There is no infiltrate or effusion. CT of the abdomen and pelvis is being done. Had echocardiogram done which shows right ventricle systolic pressure is 37, LV ejection fraction is 50%-55%, may have LVH. IMPRESSION AND PLAN: Anemia, diabetes, hyperlipidemia, history of right foot metatarsal amputation. Pulmonary point of view, doing okay. Has a B12 deficiency. Agree with the present management. We will add B12. Add inhaled bronchodilator. Cardiology followup. Agree with CT of the abdomen and pelvis. Supplement oxygen. We will make further recommendation once the CT report is available. Thank you and we will follow with you. Jenna Chase MD
[2018-02-05] MEDS: Insulin Reg-LOW-Coverage SC SCH ×4 (07:55→21:41)
--- NOTE | 2018-02-05 07:58 | CP.PCM.PN ---
Subjective - Date & Time of Evaluation Date of Evaluation: 02/05/18 Time of Evaluation: 06:30 - Subjective Subjective: Awake, alert, denies chest pain , no distress, denies shortness of breath,kept NPO Reason for consultation: Cardiac evaluation of chest pain and shortness of breath,History of hypertension, hypercholesterolemia, diabetes mellitus,amput ation of right foot metatarsal. Seen and examined by me and Dr. Ray Objective - Vital Signs/Intake and Output Vital Signs (last 24 hours): Temp Pulse Resp BP Pulse Ox 98.3 F 65 18 126/63 99 02/05/18 06:00 02/05/18 06:00 02/05/18 06:00 02/05/18 06:00 02/04/18 06:00 Intake and Output: 02/05/18 02/05/18 06:59 18:59 Intake Total 200 Output Total 300 Balance -100 - Medications Medications: Current Medications Albuterol/Ipratropium (Duoneb 3 Mg/0.5 Mg (3 Ml) Ud) 3 ml IH [id number] [facility] Last Admin: 02/05/18 07:43 Dose: 3 ml Amlodipine Besylate (Norvasc) 10 mg PO DAILY [facility] Last Admin: 02/04/18 10:26 Dose: 10 mg Cyanocobalamin (Vitamin B12 1000 Mcg/Ml Inj) 1,000 mcg IM DAILY [facility] Glipizide (Glucotrol Xl) 10 mg PO DAILY [facility] Last Admin: 02/04/18 10:27 Dose: 10 mg Hydralazine HCl (Apresoline) 10 mg IVP Q6 PRN PRN Reason: hypertension Insulin Human Regular (Humulin R Low) 0 units SC [facility]; Protocol Last Admin: 02/05/18 07:55 Dose: Not Given Lisinopril (Zestril) 40 mg PO DAILY [facility] Last Admin: 02/04/18 10:27 Dose: 40 mg Metformin HCl (Glucophage) 850 mg PO BID [facility] Last Admin: 02/04/18 17:51 Dose: 850 mg Metoprolol Tartrate (Lopressor) 25 mg PO BID [facility] Last Admin: 02/04/18 17:51 Dose: 25 mg Pantoprazole Sodium (Protonix Ec Tab) 40 mg PO 0600 [facility] Last Admin: 02/05/18 05:56 Dose: 40 mg Polyethylene Glycol (Miralax) 17 gm PO DAILY [facility] Last Admin: 02/04/18 12:49 Dose: 17 gm Sitagliptin Phosphate (Januvia) 50 mg PO DAILY [facility] Last Admin: 02/04/18 10:27 Dose: 50 mg Tamsulosin HCl (Flomax) 0.4 mg PO DAILY [facility] Last Admin: 02/04/18 10:26 Dose: 0.4 mg - Labs Labs: 02/04/18 06:30 02/04/18 06:30 PT 11.9 SECONDS (9.4-12.5) 02/03/18 17:40 INR 1.04 02/03/18 17:40 APTT 29.1 Seconds (25.1-36.5) 02/03/18 17:40 - Constitutional Appears: Non-toxic, No Acute Distress - ENT Exam ENT Exam: Mucous Membranes Moist, Normal Exam - Respiratory Exam Respiratory Exam: Decreased Breath Sounds, Clear to Ausculation Bilateral, NORMAL BREATHING PATTERN - Cardiovascular Exam Cardiovascular Exam: REGULAR RHYTHM, +S1, +S2 Additional comments: telemetry NSR 60's - GI/Abdominal Exam GI & Abdominal Exam: Soft, Normal Bowel Sounds - Extremities Exam Extremities Exam: Full ROM Additional comments: right foot metatarsal amputation - Neurological Exam Neurological Exam: Alert, Awake, Oriented x3 - Psychiatric Exam Psychiatric exam: Normal Affect, Normal Mood - Skin Skin Exam: Intact, Normal Color, Warm Assessment and Plan - Assessment and Plan (Free Text) Assessment: An 82 year old male who came in to the ER due to chest pain and shortness of breath. Mid-sternal chest pain non radiating at rest associated with shortness of breath, denies diaphoresis. claimed to be off and on for the past 2 months. Poor historian. History of hypertension, BPH, hypercholesterolemia, diabetes mellitus,amputation of right foot metatarsal. Denies chest pain now or shortness of breath. EKG showed NSR with non specific ST-T wave changes. Chest Xray-unremarkable. Initial Troponin 0.02, Repeat 0.04. Serial troponin level.Will order stress test and Echo. No previous cardiac work up at [facility]. Atypical chest pain. Denies chest pain today. for Stress test today. Plan: For Stress test today Kept NPO Denies chest pain or shortness of breath Echo done- LV size normal,LVEF 50-55%, Mild MR/TR. RVSP 37 mmHg no pericardial effusion Heart rate stable Blood pressure controlled Controlled glucose On Norvasc 10 mg daily,Lisinopril 40 mg daily,Lopressor 25 mg BID, Flomax 0.4 mg daily. Continue current medications Continue current treatment Chart reviewed Will follow up Plan and treatment discussed with Dr. Ray
[2018-02-05] MEDS: POLYETHYLENE GLYCOL 3350 17 GM/Dose PACKET PO SCH (09:14)
[2018-02-05] MEDS: GlipiZIDE 10 mg SR Tab PO SCH (09:14)
--- NOTE | 2018-02-05 10:51 | CT ---
Date of service: 02/04/18 CT chest, abdomen, and pelvis without IV contrast Indication: Atypical chest pain, abdominal pain, malignancy Technique: Contiguous axial images of the chest, abdomen, and pelvis without oral or IV contrast. Coronal and Sagittal reformats generated and reviewed. This CT exam was performed using 1 or more of the following dose reduction techniques: Automated exposure control, adjustment of the MAA and/or kV according to patient size, and/or use of iterative reconstruction technique. Radiation dose: Total exam DLP = 803.69 MGy-cm. Comparison: Chest x-ray performed 02/03/18 Findings: Numerous heterogeneous and hypodense nodules as well as calcifications noted within the imaged portions of the inferior thyroid gland. The mediastinal and hilar vascular structures appear within normal limits. The heart appears within normal limits of size. Dense coronary artery calcifications. No focal consolidation. Mild bilateral pleural thickening/trace fluid. No pneumothorax. No suspicious pulmonary nodules measuring greater than 5 mm. Cholelithiasis. 5 cm left renal hypodense lesion measures approximately 4 HU consistent with a cyst. Bilateral perinephric stranding. No hydronephrosis or obstructing calculus identified. The noncontrast liver, spleen, pancreas, and adrenal glands appear otherwise unremarkable. The stomach is nondistended. Lack of oral contrast limits evaluation for bowel pathology. The bowel loops appear within normal limits of caliber without evidence of intestinal obstruction. There is no definite free air. The appendix appears within normal limits of caliber. No secondary signs of acute appendicitis. Mildly enlarged prostate gland containing calcifications. Mild urinary bladder wall thickening may be exaggerated by under distension. Degenerative changes of the spine. Impression: Numerous heterogeneous and hypodense nodules as well as calcifications noted within the imaged portions of the inferior thyroid gland. Recommend further evaluation with thyroid ultrasound. Cholelithiasis. Prostate gland enlargement. Recommend correlation with PSA. Mild bilateral perinephric stranding bilaterally. 5 cm left renal cyst. Additional findings as above. Preliminary impression was provided by [employer].
--- NOTE | 2018-02-05 14:47 | CP.PCM.PN ---
<AlyssaLeonelsarmad - Last Filed: 02/05/18 17:46> Subjective - Date & Time of Evaluation Date of Evaluation: 02/05/18 Time of Evaluation: 08:00 - Subjective Subjective: PGY-4 GI Fellow Prog Note Pt sitting up in bed when seen this AM. States he is doing well with minimal to no CP nor SOB. Eager for stress test today. Had 1 BM yesterday after miralax. 5 point ROS negative other than stated above Objective - Vital Signs/Intake and Output Vital Signs (last 24 hours): Temp Pulse Resp BP Pulse Ox 98.3 F 65 18 136/64 99 02/05/18 06:00 02/05/18 06:00 02/05/18 06:00 02/05/18 09:14 02/04/18 06:00 Intake and Output: 02/05/18 02/05/18 06:59 18:59 Intake Total 200 Output Total 300 Balance -100 - Medications Medications: Current Medications Albuterol/Ipratropium (Duoneb 3 Mg/0.5 Mg (3 Ml) Ud) 3 ml IH [id number] [facility] Last Admin: 02/05/18 14:13 Dose: 3 ml Amlodipine Besylate (Norvasc) 10 mg PO DAILY [facility] Last Admin: 02/05/18 09:14 Dose: 10 mg Cyanocobalamin (Vitamin B12 1000 Mcg/Ml Inj) 1,000 mcg IM DAILY [facility] Last Admin: 02/05/18 09:13 Dose: 1,000 mcg Glipizide (Glucotrol Xl) 10 mg PO DAILY [facility] Last Admin: 02/05/18 09:14 Dose: Not Given Hydralazine HCl (Apresoline) 10 mg IVP Q6 PRN PRN Reason: hypertension Insulin Human Regular (Humulin R Low) 0 units SC [facility]; Protocol Last Admin: 02/05/18 12:15 Dose: Not Given Lisinopril (Zestril) 40 mg PO DAILY [facility] Last Admin: 02/05/18 09:14 Dose: 40 mg Metformin HCl (Glucophage) 850 mg PO BID [facility] Last Admin: 02/05/18 09:13 Dose: 850 mg Metoprolol Tartrate (Lopressor) 25 mg PO BID [facility] Last Admin: 02/05/18 09:14 Dose: 25 mg Pantoprazole Sodium (Protonix Ec Tab) 40 mg PO 0600 [facility] Last Admin: 02/05/18 05:56 Dose: 40 mg Polyethylene Glycol (Miralax) 17 gm PO DAILY [facility] Last Admin: 02/05/18 09:14 Dose: Not Given Sitagliptin Phosphate (Januvia) 50 mg PO DAILY [facility] Last Admin: 02/05/18 09:14 Dose: Not Given Tamsulosin HCl (Flomax) 0.4 mg PO DAILY [facility] Last Admin: 02/05/18 09:14 Dose: 0.4 mg - Labs Labs: 02/04/18 06:30 02/04/18 06:30 PT 11.9 SECONDS (9.4-12.5) 02/03/18 17:40 INR 1.04 02/03/18 17:40 APTT 29.1 Seconds (25.1-36.5) 02/03/18 17:40 - Constitutional Appears: Well, Non-toxic - Head Exam Head Exam: ATRAUMATIC, NORMAL INSPECTION - Eye Exam Eye Exam: EOMI. absent: Conjunctival injection, Scleral icterus - ENT Exam ENT Exam: Mucous Membranes Dry. absent: Mucous Membranes Moist, Normal External Ear Exam - Cardiovascular Exam Cardiovascular Exam: REGULAR RHYTHM, RRR - GI/Abdominal Exam GI & Abdominal Exam: Soft, Normal Bowel Sounds. absent: Bruit, Distended, Firm, Guarding, Rigid, Tenderness, Hernia, Mass, Organomegaly, Pulsatile Mass, Rebound Assessment and Plan - Assessment and Plan (Free Text) Assessment: 82 yo Hisp Male with DM2, HTN, HLD presenting with chest pain and shortness of breath. GI consult for possible GERD. # Chest Pain: Atypical. Perhaps related to GERD/GI given worse at night and some relief with water intake. However, given comorbidities and also reported shortness of breath would be more concerned about cardiopulmonary sources as well. No red flag symptoms to warrant EGD at this time. # Constipation: Pt states 3 days since last BM. No bleeding noted. CSPY in August 2016 with diverticulosis and internal hemorrhoids. # Chronic Anemia: Hgb is borderline macrocytic without clear reason. No EtOH nor liver disease. Plan: - Pantoprazole 40 mg QD, 30 min before first meal of day - Agree with Cardiology evaluation for cardiac cause of CP/SOB; stress test negative and echo with borderline EF - Miralax daily - EGD as outpatient; OK to DC from GI standpoint - Appreciate Heme eval for anemia Thank you for the consult. Will sign off. Please call if questions. Pt seen and examined with Dr. Larsen; please see attestation for further recs/changes <Angela Larsen V - Last Filed: 02/05/18 20:07> Objective - Vital Signs/Intake and Output Vital Signs (last 24 hours): Temp Pulse Resp BP Pulse Ox 97.2 F L 67 18 132/62 99 02/05/18 17:40 02/05/18 18:00 02/05/18 17:40 02/05/18 17:40 02/04/18 06:00 Intake and Output: 02/05/18 02/06/18 18:59 06:59 Intake Total 1100 Output Total 1000 Balance 100 - Medications Medications: Current Medications Albuterol/Ipratropium (Duoneb 3 Mg/0.5 Mg (3 Ml) Ud) 3 ml IH [id number] [facility] Last Admin: 02/05/18 19:47 Dose: 3 ml Amlodipine Besylate (Norvasc) 10 mg PO DAILY [facility] Last Admin: 02/05/18 09:14 Dose: 10 mg Cyanocobalamin (Vitamin B12 1000 Mcg/Ml Inj) 1,000 mcg IM DAILY [facility] Last Admin: 02/05/18 09:13 Dose: 1,000 mcg Glipizide (Glucotrol Xl) 10 mg PO DAILY [facility] Last Admin: 02/05/18 09:14 Dose: Not Given Hydralazine HCl (Apresoline) 10 mg IVP Q6 PRN PRN Reason: hypertension Insulin Human Regular (Humulin R Low) 0 units SC [facility]; Protocol Last Admin: 02/05/18 17:10 Dose: 3 unit Lisinopril (Zestril) 40 mg PO DAILY [facility] Last Admin: 02/05/18 09:14 Dose: 40 mg Metformin HCl (Glucophage) 850 mg PO BID [facility] Last Admin: 02/05/18 17:09 Dose: 850 mg Metoprolol Tartrate (Lopressor) 25 mg PO BID [facility] Last Admin: 02/05/18 17:10 Dose: 25 mg Pantoprazole Sodium (Protonix Ec Tab) 40 mg PO 0600 [facility] Last Admin: 02/05/18 05:56 Dose: 40 mg Polyethylene Glycol (Miralax) 17 gm PO DAILY [facility] Last Admin: 02/05/18 09:14 Dose: Not Given Sitagliptin Phosphate (Januvia) 50 mg PO DAILY [facility] Last Admin: 02/05/18 09:14 Dose: Not Given Tamsulosin HCl (Flomax) 0.4 mg PO DAILY [facility] Last Admin: 02/05/18 09:14 Dose: 0.4 mg - Labs Labs: 02/04/18 06:30 02/04/18 06:30 PT 11.9 SECONDS (9.4-12.5) 02/03/18 17:40 INR 1.04 02/03/18 17:40 APTT 29.1 Seconds (25.1-36.5) 02/03/18 17:40 Attending/Attestation - Attestation I have personally seen and examined this patient.: Yes I have fully participated in the care of the patient.: Yes I have reviewed all pertinent clinical information, including history, physical exam and plan: Yes Notes (Text): This is an addendum to GI progress report dictated by the GI Fellow.The patient was seen and examined earlier. Medical records, lab studies, imagings were reviewed. Last 24 hours events reviewed. Agreed with the above treatment plan as outlined in GI Fellow 's notes with the addition of the following This patient had recently had a cardiac workup done Patient is feeling better tolerating diet Would consider EGD as an outpatient History of constipation had colonoscopy in 2017 reviewed Reviewed only diverticulosis and hemorrhoids Patient is being evaluated by pulp screen operator for macrocytic chronic anemia 02/05/18 20:04
--- NOTE | 2018-02-05 17:51 | PN ---
DATE: 02/05/2018 SUBJECTIVE: The patient is an 82-year-old male. The patient was seen and examined on the bedside on 02/05/2018, looking comfortable, getting ready to go for a stress test. No fever, no chills. No nausea, vomiting or diarrhea. No headache, no dizziness. He was complaining sometimes chest pain and abdominal pain. No hematuria or hematochezia. PHYSICAL EXAMINATION VITAL SIGNS: Temperature 98.6, pulse 65, respiratory rate 18, blood pressure 126/60, pulse oximetry 99. HEENT: Head normocephalic, atraumatic. Eyes PERRLA. Extraocular muscles intact. Conjunctivae clear. Nose patent. Mucous membrane moist. NECK: Supple. No carotid bruit. No JVD or thyromegaly. CHEST: Bilaterally symmetrical. HEART: S1 and S2 positive. LUNGS: Clear to auscultation. ABDOMEN: Soft. Bowel sounds are present. No organomegaly. EXTREMITIES: No edema. No cyanosis. NEUROLOGICAL: The patient is awake and alert. Moving all 4 extremities. No focal deficits. MEDICATIONS: DuoNeb, Norvasc, cyanocobalamin, hydralazine, insulin, Zestril, metformin, Lopressor, Protonix, MiraLax, Januvia and Flomax. LABORATORY DATA: White blood cells 7.4, hemoglobin 10.1, hematocrit 28.6, and platelet 253. Sodium 132, potassium 4.1, BUN 27, creatinine 1.2, glucose 85. ASSESSMENT AND PLAN: Mr. Alvaro Whalen is an 82-year-old male with anemia, renal insufficiency came with chest pain, shortness of breath, history of benign prostatic hypertrophy, hypercholesterolemia, diabetes mellitus, amputation of the right foot metatarsals. Initial troponin was 0.02, repeat is 0.04. Serial troponin level noted. When I saw the patient, the patient was going for a stress test. No previous cardiac workup. According to Cardiology, looks like atypical chest pain. The patient is n.p.o. for stress test. For blood pressure, getting Norvasc, lisinopril and Lopressor. Flomax for benign prostatic hypertrophy. Appreciated Cardiology, Pulmonary and Hematology consults. Has B12 deficiency, macrocytic anemia. Dr. Chase added the B12 and inhaled bronchodilators. Reviewed CT of the abdomen and pelvis. Gastrointestinal, deep venous thrombosis prophylaxes. Repeat labs. Continue present treatment. Luisa Carey MD
--- NOTE | 2018-02-05 22:06 | PN ---
DATE: 02/05/2018 PULMONARY PROGRESS NOTE REFERRING PHYSICIAN: Luisa Carey MD. SUBJECTIVE: He is lying in the bed, head at 45 degrees. Feels better. No cough. Short of breath improved. No chest pain. Mild abdominal discomfort. No nausea, vomiting, or diarrhea. No leg pain or leg swelling. PHYSICAL EXAMINATION: GENERAL: In no acute distress. VITAL SIGNS: Temperature is 98, heart rate 68, respiratory rate is 18, blood pressure 132/62, pulse ox 99% on room air. HEENT: Moist mucous membrane. Crowded airway. NECK: Supple. No JVD. LUNGS: Have a fair airflow with rhonchi. HEART: S1 and S2. ABDOMEN: Soft, nontender. No organomegaly. EXTREMITIES: There is no edema. NEUROLOGIC: Awake, alert, and follows simple command. MEDICATIONS: He is on hydralazine 10 mg every 6 hours p.r.n., DuoNeb every 6 hours, Flomax 0.4 mg daily, metformin 850 mg twice a day, glipizide 10 mg daily, insulin coverage, Januvia 50 mg daily, metoprolol tartrate 25 mg twice a day, MiraLax 17 g daily, Norvasc 10 mg daily, Protonix 40 mg daily, vitamin B12 1000 mcg IM daily, Zestril 40 mg daily. LABORATORY DATA: Reviewed and noted. Blood sugar is 86. Microbiology unremarkable. Had a myocardial stress test done, report is still pending. IMPRESSION AND PLAN: Anemia, diabetes, hyperlipidemia, history of right foot metatarsal amputation, B12 deficiency. Cardiac causes of short of breath is being ruled out. Pulmonary point of view, doing okay. Keep head at 45 degrees. Bronchodilator. May need attended sleep study and PFT upon discharge as an outpatient. Thank you and we will follow with you. Jenna Chase MD
--- NOTE | 2018-02-05 23:25 | CARD ---
APPROVED REPORT Date of service: 02/05/2018 Protocol: LEXISCAN Test Type: Lexiscan Sestamibi Stress Test Attending Physician: Dr. Jenna Knutson Referring Physician: Dr. Luisa Carey Test Indications: Chest Pain Height:6 ft 0 in Weight:165lbs Medications: Duoneb,Norvasc,Vit B12,Glucotrol, Insulin,Zestril, Metformin,Lopressor, Protonix,Miralax, Januvia,Flomax Medical History: 82 y/o male. Hx of chest pain,shortness of breath, diabetic,PVD,hypertension. Target HR: 139 bpm Resting ECG: Sinus Rythm. MO Prolonged. Lt.Ant.Scooby-Block. ST-T Changes. Resting Heart Rate: 60 bpm Resting Blood Pressure: 132/70mmHg Submaximum (85%): 118 bpm PROCEDURE Pharmacologic stress testing was performed using 0.4mg per 5ml of regadenoson given intravenously over 7-10 seconds. POST EXERCISE Reason for Termination: Protocol completed Target HR: No Max HR: 61 bpm 50% of Maximum Predicted HR: 139 bpm Exercise duration: 00:37 min:sec, 0 Stage Exercise capacity: 1.0METs Max Blood Pressure: 132/70mmHg Blood Pressure response to exercise: normal resting BP - appropriate response Heart Rate response to exercise: appropriate Chest Pain: No, none Angina index: 0 Arrhythmia: No, none ST Change: No, none Deviation: 0 mm INTERPRETATION Stress EKG Conclusion: IV LEXISCAN NUCLEAR STRESS TEST NEGATIVE FOR CHEST PAIN AND NEGATIVE FOR ST-T CHANGES. NUCLEAR SCAN REPORT PENDING.110 Signed by Jenna Knutson Electronically Approved: 02/05/2018 12:42:00 EXAM: Myocardial Perfusion REST/STRESS Stress Test Type: Pharmacologic Imaging Protocol Rest Spect myocardial perfusion imaging was performed in supine position 45 minutes following the injection of 10.3 mCi of Tc-99 Myoview. At peak stress, the patient was injected intravenously with 30.2mCi of Tc-99 tetrofosmin after an infusion time of 0 minutes and 10 seconds. Gated Stress Spect was performed 65 minutes after intravenous Tc-99 Myoview injection. The images were gated to evaluate regional wall motion and calculate ventricular ejection fraction.Images were reconstructed using backfilter projection method in short horizontal and verticle long axis. Spect slices were generated. LV Perfusion The quality of the study is good. The left ventricle is normal in size. The right ventricle is prominent. The lung uptake is borderline increased. The distribution of tracer reveal a small area of moderately to severely decreased perfusion involving distal anteroseptal and apical escobar on the stress study. The remainder of the LV myocardium is unremarkable. The rest myocardial perfusion study shows no significant improvement of the defects. Wall Motion Wall motion study shows normal contractility of the left ventricle. LVEF = 63%. Conclusion 1. Abnormal SPECT myocardial perfusion study. 2. Fixed, small, distal anteroseptal/ d apical defect is suggestive of myocardial injury/infarct. 3. Normal gated wall motion of the left ventricle.
[2018-02-06] MEDS: Albuterol-Ipratrop 3 mg / 0.5 (3 ml) UD IH SCH ×4 (01:11→19:46)
[2018-02-06] MEDS: Pantoprazole 40 mg EC Tab PO SCH (06:59)
--- NOTE | 2018-02-06 07:22 | CP.PCM.PN ---
Subjective - Date & Time of Evaluation Date of Evaluation: 02/06/18 Time of Evaluation: 06:25 - Subjective Subjective: No distress,awake, alert, denies chest pain Reason for consultation: Cardiac evaluation of chest pain and shortness of breath,History of hypertension, hypercholesterolemia, diabetes mellitus,amputation of right foot metatarsal. Seen and examined by me and Dr. Ray Objective - Vital Signs/Intake and Output Vital Signs (last 24 hours): Temp Pulse Resp BP Pulse Ox 97.2 F L 67 18 132/62 99 02/05/18 17:40 02/05/18 18:00 02/05/18 17:40 02/05/18 17:40 02/04/18 06:00 Intake and Output: 02/06/18 02/06/18 06:59 18:59 Intake Total 1100 Output Total 1000 Balance 100 - Medications Medications: Current Medications Albuterol/Ipratropium (Duoneb 3 Mg/0.5 Mg (3 Ml) Ud) 3 ml IH [id number] [facility] Last Admin: 02/06/18 01:11 Dose: 3 ml Amlodipine Besylate (Norvasc) 10 mg PO DAILY [facility] Last Admin: 02/05/18 09:14 Dose: 10 mg Cyanocobalamin (Vitamin B12 1000 Mcg/Ml Inj) 1,000 mcg IM DAILY [facility] Last Admin: 02/05/18 09:13 Dose: 1,000 mcg Glipizide (Glucotrol Xl) 10 mg PO DAILY [facility] Last Admin: 02/05/18 09:14 Dose: Not Given Hydralazine HCl (Apresoline) 10 mg IVP Q6 PRN PRN Reason: hypertension Insulin Human Regular (Humulin R Low) 0 units SC [facility]; Protocol Last Admin: 02/05/18 21:41 Dose: Not Given Lisinopril (Zestril) 40 mg PO DAILY [facility] Last Admin: 02/05/18 09:14 Dose: 40 mg Metformin HCl (Glucophage) 850 mg PO BID [facility] Last Admin: 02/05/18 17:09 Dose: 850 mg Metoprolol Tartrate (Lopressor) 25 mg PO BID [facility] Last Admin: 02/05/18 17:10 Dose: 25 mg Pantoprazole Sodium (Protonix Ec Tab) 40 mg PO 0600 [facility] Last Admin: 02/06/18 06:59 Dose: 40 mg Polyethylene Glycol (Miralax) 17 gm PO DAILY [facility] Last Admin: 02/05/18 09:14 Dose: Not Given Sitagliptin Phosphate (Januvia) 50 mg PO DAILY [facility] Last Admin: 02/05/18 09:14 Dose: Not Given Tamsulosin HCl (Flomax) 0.4 mg PO DAILY [facility] Last Admin: 02/05/18 09:14 Dose: 0.4 mg - Labs Labs: 02/04/18 06:30 02/04/18 06:30 PT 11.9 SECONDS (9.4-12.5) 02/03/18 17:40 INR 1.04 02/03/18 17:40 APTT 29.1 Seconds (25.1-36.5) 02/03/18 17:40 - Constitutional Appears: Non-toxic, No Acute Distress - Head Exam Head Exam: NORMAL INSPECTION, NORMOCEPHALIC - Eye Exam Eye Exam: Normal appearance - ENT Exam ENT Exam: Mucous Membranes Moist - Respiratory Exam Respiratory Exam: Decreased Breath Sounds, Clear to Ausculation Bilateral, NORMAL BREATHING PATTERN - Cardiovascular Exam Cardiovascular Exam: REGULAR RHYTHM, +S1, +S2 - GI/Abdominal Exam GI & Abdominal Exam: Soft, Normal Bowel Sounds - Extremities Exam Additional comments: right metatarsal amputation - Neurological Exam Neurological Exam: Alert, Awake, Oriented x3 - Psychiatric Exam Psychiatric exam: Normal Affect, Normal Mood - Skin Skin Exam: Dry, Intact, Normal Color, Warm Assessment and Plan - Assessment and Plan (Free Text) Assessment: An 82 year old male who came in to the ER due to chest pain and shortness of breath. Mid-sternal chest pain non radiating at rest associated with shortness of breath, denies diaphoresis. claimed to be off and on for the past 2 months. Poor historian. History of hypertension, BPH, hypercholesterolemia, diabetes mellitus,amputation of right foot metatarsal. Denies chest pain now or shortness of breath. EKG showed NSR with non specific ST-T wave changes. Chest Xray-unremarkable. Initial Troponin 0.02, Repeat 0.04. Serial troponin level.Will order stress test and Echo. No previous cardiac work up at [facility]. Atypical chest pain. Denies chest pain today. Echo done- LV size normal,LVEF 50-55%, Mild MR/TR. RVSP 37 mmHg, no pericardial effusion. Stress test done-fixed small distal anteroseptal apical defect suggestive of previous myocardial infarction.No ischemia. Plan: Stress test done-fixed small distal anteroseptal apical defect suggestive of previous myocardial infarction. No ischemia. Denies chest pain or shortness of breath Heart rate stable Blood pressure controlled Controlled glucose On Norvasc 10 mg daily,Lisinopril 40 mg daily,Lopressor 25 mg BID, Flomax 0.4 mg daily. Pulmonary on consult GI on consult Continue current medications Continue current treatment Chart reviewed May discharge from cardiac standpoint Will follow up Plan and treatment discussed with Dr. Ray
[2018-02-06] MEDS: Insulin Reg-LOW-Coverage SC SCH ×4 (08:25→21:31)
[2018-02-06] MEDS: GlipiZIDE 10 mg SR Tab PO SCH ×2 (09:56→12:51)
[2018-02-06] MEDS: POLYETHYLENE GLYCOL 3350 17 GM/Dose PACKET PO SCH (10:27)
--- NOTE | 2018-02-06 11:31 | CP.PCM.PN ---
Subjective - Date & Time of Evaluation Date of Evaluation: 02/06/18 Time of Evaluation: 10:00 - Subjective Subjective: denies chest pain, no SOB Objective - Vital Signs/Intake and Output Vital Signs (last 24 hours): Temp Pulse Resp BP Pulse Ox 97.2 F L 86 18 120/70 99 02/05/18 17:40 02/06/18 10:27 02/05/18 17:40 02/06/18 10:27 02/04/18 06:00 Intake and Output: 02/06/18 02/06/18 06:59 18:59 Intake Total 1100 300 Output Total 1000 1200 Balance 100 -900 - Medications Medications: Current Medications Albuterol/Ipratropium (Duoneb 3 Mg/0.5 Mg (3 Ml) Ud) 3 ml IH [id number] [facility] Last Admin: 02/06/18 08:47 Dose: 3 ml Amlodipine Besylate (Norvasc) 10 mg PO DAILY [facility] Last Admin: 02/06/18 10:27 Dose: 10 mg Aspirin (Ecotrin) 81 mg PO DAILY [facility] Cyanocobalamin (Vitamin B12 1000 Mcg/Ml Inj) 1,000 mcg IM DAILY [facility] Last Admin: 02/06/18 10:28 Dose: 1,000 mcg Glipizide (Glucotrol Xl) 10 mg PO DAILY [facility] Last Admin: 02/06/18 09:56 Dose: Not Given Hydralazine HCl (Apresoline) 10 mg IVP Q6 PRN PRN Reason: hypertension Insulin Human Regular (Humulin R Low) 0 units SC [facility]; Protocol Last Admin: 02/06/18 08:25 Dose: Not Given Lisinopril (Zestril) 40 mg PO DAILY [facility] Last Admin: 02/06/18 10:27 Dose: 40 mg Metformin HCl (Glucophage) 850 mg PO BID [facility] Last Admin: 02/06/18 10:27 Dose: 850 mg Metoprolol Tartrate (Lopressor) 25 mg PO BID [facility] Last Admin: 02/06/18 10:27 Dose: 25 mg Pantoprazole Sodium (Protonix Ec Tab) 40 mg PO 0600 [facility] Last Admin: 02/06/18 06:59 Dose: 40 mg Polyethylene Glycol (Miralax) 17 gm PO DAILY [facility] Last Admin: 02/06/18 10:27 Dose: 17 gm Sitagliptin Phosphate (Januvia) 50 mg PO DAILY [facility] Last Admin: 02/06/18 09:56 Dose: Not Given Tamsulosin HCl (Flomax) 0.4 mg PO DAILY [facility] Last Admin: 02/06/18 10:27 Dose: 0.4 mg - Labs Labs: 02/04/18 06:30 02/04/18 06:30 PT 11.9 SECONDS (9.4-12.5) 02/03/18 17:40 INR 1.04 02/03/18 17:40 APTT 29.1 Seconds (25.1-36.5) 02/03/18 17:40 - Respiratory Exam Respiratory Exam: Clear to Ausculation Bilateral - Cardiovascular Exam Cardiovascular Exam: REGULAR RHYTHM - GI/Abdominal Exam GI & Abdominal Exam: Soft, Normal Bowel Sounds - Extremities Exam Extremities Exam: Normal Inspection - Neurological Exam Neurological Exam: Alert, Awake - Skin Skin Exam: Dry, Warm Assessment and Plan (1) Chest pain Status: Acute (2) Type II diabetes mellitus Status: Chronic - Assessment and Plan (Free Text) Assessment: stress test negative, pt stable, for DC to home in am if Ok with Dr Carey
--- NOTE | 2018-02-06 13:13 | PN ---
DATE: 02/06/2018 REASON FOR THE CONSULTATION AND FOLLOWUP: Chest pain, diabetes, hypertension, hyperlipidemia, PAD status post right metatarsal amputation. SUBJECTIVE: Denies any further episode of chest pain. The patient yesterday underwent a stress test that revealed abnormal myocardial perfusion study, fixed defect, anteroseptal apical defect, no ischemia, ejection fraction 63%. The patient had echocardiography also on 02/04/2018 that showed ejection fraction 50-55%, trace mild mitral regurgitation, mild tricuspid regurgitation and RV systolic pressure of 37. So far no evidence of acute CA. RECOMMENDATIONS: Aggressive medical treatment. We will discontinue telemetry. Continue beta-elda. Continue lisinopril. We will put low dose of baby aspirin as tolerated. Jenna Ray MD [facility] # [id number]
--- NOTE | 2018-02-06 20:49 | CP.PCM.PN ---
Subjective - Date & Time of Evaluation Date of Evaluation: 02/06/18 Time of Evaluation: 14:00 - Subjective Subjective: Doing well Tolerating diet Objective - Vital Signs/Intake and Output Vital Signs (last 24 hours): Temp Pulse Resp BP Pulse Ox 97.6 F 79 20 138/68 98 02/06/18 18:00 02/06/18 18:00 02/06/18 18:00 02/06/18 18:00 02/06/18 18:00 Intake and Output: 02/06/18 02/07/18 18:59 06:59 Intake Total 300 240 Output Total 1200 Balance -900 240 - Medications Medications: Current Medications Albuterol/Ipratropium (Duoneb 3 Mg/0.5 Mg (3 Ml) Ud) 3 ml IH [id number] [facility] Last Admin: 02/06/18 19:46 Dose: 3 ml Amlodipine Besylate (Norvasc) 10 mg PO DAILY [facility] Last Admin: 02/06/18 10:27 Dose: 10 mg Aspirin (Ecotrin) 81 mg PO DAILY [facility] Cyanocobalamin (Vitamin B12 1000 Mcg/Ml Inj) 1,000 mcg IM DAILY [facility] Last Admin: 02/06/18 10:28 Dose: 1,000 mcg Glipizide (Glucotrol Xl) 10 mg PO DAILY [facility] Last Admin: 02/06/18 12:51 Dose: 10 mg Hydralazine HCl (Apresoline) 10 mg IVP Q6 PRN PRN Reason: hypertension Insulin Human Regular (Humulin R Low) 0 units SC [facility]; Protocol Last Admin: 02/06/18 16:44 Dose: 2 unit Lisinopril (Zestril) 40 mg PO DAILY [facility] Last Admin: 02/06/18 10:27 Dose: 40 mg Metformin HCl (Glucophage) 850 mg PO BID [facility] Last Admin: 02/06/18 17:44 Dose: 850 mg Metoprolol Tartrate (Lopressor) 25 mg PO BID [facility] Last Admin: 02/06/18 17:45 Dose: 25 mg Pantoprazole Sodium (Protonix Ec Tab) 40 mg PO 0600 [facility] Last Admin: 02/06/18 06:59 Dose: 40 mg Polyethylene Glycol (Miralax) 17 gm PO DAILY [facility] Last Admin: 02/06/18 10:27 Dose: 17 gm Sitagliptin Phosphate (Januvia) 50 mg PO DAILY [facility] Last Admin: 02/06/18 12:51 Dose: 50 mg Tamsulosin HCl (Flomax) 0.4 mg PO DAILY [facility] Last Admin: 02/06/18 10:27 Dose: 0.4 mg - Labs Labs: 02/04/18 06:30 02/04/18 06:30 PT 11.9 SECONDS (9.4-12.5) 02/03/18 17:40 INR 1.04 02/03/18 17:40 APTT 29.1 Seconds (25.1-36.5) 02/03/18 17:40 - Constitutional Appears: Non-toxic, No Acute Distress - Head Exam Head Exam: ATRAUMATIC, NORMOCEPHALIC - Eye Exam Eye Exam: EOMI, PERRL Pupil Exam: PERRL - ENT Exam ENT Exam: Mucous Membranes Moist - Neck Exam Neck Exam: Full ROM. absent: Lymphadenopathy - Respiratory Exam Respiratory Exam: absent: Rales, Rhonchi - Cardiovascular Exam Cardiovascular Exam: +S1, +S2. absent: JVD - GI/Abdominal Exam GI & Abdominal Exam: Soft. absent: Tenderness, Mass Assessment and Plan - Assessment and Plan (Free Text) Assessment: A.typical chest pain epigastric pain Macrocytic anemia Constipation Cardiac workup reviewed Plan: Stool softeners Continue PPI Cardiology workup reviewed EGD as outpatient
--- NOTE | 2018-02-06 22:14 | PN ---
DATE: 02/06/2018 PULMONARY PROGRESS NOTE REFERRING PHYSICIAN: Luisa Carey MD. SUBJECTIVE: The patient is lying in the stretcher, being moved to the Med-Surg floor. Night was unremarkable. Feels better. Status post cardiac stress test one, reported unremarkable. Seen by Cardiology. Constipated. Short of breath improved. No leg pain. No leg swelling. OBJECTIVE: GENERAL: In no acute distress. VITAL SIGNS: Temperature is 98, heart rate is 79, respiratory rate is 20, blood pressure 138/68, pulse ox 98% on room air. HEENT: Moist mucous membrane. Crowded airway. NECK: Supple. No JVD. LUNGS: Have a fair airflow with few rhonchi. HEART: S1 and S2. ABDOMEN: Soft and nontender. No organomegaly. EXTREMITIES: No edema. NEUROLOGICAL: Awake and alert. Follows simple command. MEDICATIONS: He is on hydralazine 10 mg every 6 hours p.r.n., DuoNeb every 6 hours, Ecotrin 81 mg daily, Flomax 0.4 mg daily, Glucophage 850 mg twice a day, glipizide XL 10 mg daily, insulin coverage, Januvia 50 mg daily, metoprolol tartrate 25 mg twice a day, MiraLax 17 g daily, Norvasc 10 mg daily, Protonix 40 mg daily, vitamin B12 at 1000 mcg IM daily, Zestril 40 mg daily. LABORATORY DATA: Reviewed shows blood sugar this morning 217. IMPRESSION AND PLAN: Anemia, diabetes, hyperlipidemia, right foot metatarsal area amputation, B12 deficiency, constipation, small fixed cardiac defect. Pulmonary point of view, doing okay. Seen by Cardiology. Started on MiraLax for constipation. Out of bed to chair. Spoke to family. All the questions answered. Continue bronchodilator. Outpatient, we will do PFT. Fall precaution. Thank you and we will follow with you. Jenna Chase MD
[2018-02-07] MEDS: Albuterol-Ipratrop 3 mg / 0.5 (3 ml) UD IH SCH ×4 (01:27→19:36)
[2018-02-07] MEDS: Pantoprazole 40 mg EC Tab PO SCH (05:15)
[2018-02-07] MEDS: Insulin Reg-LOW-Coverage SC SCH ×4 (08:36→21:57)
--- NOTE | 2018-02-07 08:37 | CP.PCM.PN ---
Subjective - Date & Time of Evaluation Date of Evaluation: 02/07/18 Time of Evaluation: 06:45 - Subjective Subjective: Awake, alert, denies chest pain, no distress Reason for consultation: Cardiac evaluation of chest pain and shortness of breath,History of hypertension, hypercholesterolemia, diabetes mellitus,amputation of right foot metatarsal. Seen and examined by me and Dr. Ray Objective - Vital Signs/Intake and Output Vital Signs (last 24 hours): Temp Pulse Resp BP Pulse Ox 97.5 F L 72 18 138/73 97 02/07/18 08:19 02/07/18 08:19 02/07/18 08:19 02/07/18 08:19 02/07/18 08:19 Intake and Output: 02/07/18 02/07/18 06:59 18:59 Intake Total 480 Output Total 1325 Balance -845 - Medications Medications: Current Medications Albuterol/Ipratropium (Duoneb 3 Mg/0.5 Mg (3 Ml) Ud) 3 ml IH [id number] [facility] Last Admin: 02/07/18 08:29 Dose: 3 ml Amlodipine Besylate (Norvasc) 10 mg PO DAILY [facility] Last Admin: 02/06/18 10:27 Dose: 10 mg Aspirin (Ecotrin) 81 mg PO DAILY [facility] Cyanocobalamin (Vitamin B12 1000 Mcg/Ml Inj) 1,000 mcg IM DAILY [facility] Last Admin: 02/06/18 10:28 Dose: 1,000 mcg Glipizide (Glucotrol Xl) 10 mg PO DAILY [facility] Last Admin: 02/06/18 12:51 Dose: 10 mg Hydralazine HCl (Apresoline) 10 mg IVP Q6 PRN PRN Reason: hypertension Insulin Human Regular (Humulin R Low) 0 units SC [facility]; Protocol Last Admin: 02/06/18 21:31 Dose: Not Given Lisinopril (Zestril) 40 mg PO DAILY [facility] Last Admin: 02/06/18 10:27 Dose: 40 mg Metformin HCl (Glucophage) 850 mg PO BID [facility] Last Admin: 02/06/18 17:44 Dose: 850 mg Metoprolol Tartrate (Lopressor) 25 mg PO BID [facility] Last Admin: 02/06/18 17:45 Dose: 25 mg Pantoprazole Sodium (Protonix Ec Tab) 40 mg PO 0600 [facility] Last Admin: 02/07/18 05:15 Dose: 40 mg Polyethylene Glycol (Miralax) 17 gm PO DAILY [facility] Last Admin: 02/06/18 10:27 Dose: 17 gm Sitagliptin Phosphate (Januvia) 50 mg PO DAILY [facility] Last Admin: 02/06/18 12:51 Dose: 50 mg Tamsulosin HCl (Flomax) 0.4 mg PO DAILY [facility] Last Admin: 02/06/18 10:27 Dose: 0.4 mg - Labs Labs: 02/04/18 06:30 02/04/18 06:30 PT 11.9 SECONDS (9.4-12.5) 02/03/18 17:40 INR 1.04 02/03/18 17:40 APTT 29.1 Seconds (25.1-36.5) 02/03/18 17:40 - Constitutional Appears: Non-toxic, No Acute Distress - Head Exam Head Exam: NORMAL INSPECTION, NORMOCEPHALIC - Eye Exam Eye Exam: Normal appearance - ENT Exam ENT Exam: Mucous Membranes Moist - Respiratory Exam Respiratory Exam: Decreased Breath Sounds, Clear to Ausculation Bilateral, NO RMAL BREATHING PATTERN - Cardiovascular Exam Cardiovascular Exam: +S1, +S2 - GI/Abdominal Exam GI & Abdominal Exam: Soft, Normal Bowel Sounds - Extremities Exam Additional comments: right foot metatarsal amputation no swelling - Neurological Exam Neurological Exam: Alert, Awake, Oriented x3 - Psychiatric Exam Psychiatric exam: Normal Affect, Normal Mood - Skin Skin Exam: Dry, Normal Color, Warm Assessment and Plan - Assessment and Plan (Free Text) Assessment: An 82 year old male who came in to the ER due to chest pain and shortness of breath. Mid-sternal chest pain non radiating at rest associated with shortness of breath, denies diaphoresis. claimed to be off and on for the past 2 months. Poor historian. History of hypertension, BPH, hypercholesterolemia, diabetes mellitus,amputation of right foot metatarsal. Denies chest pain now or shortness of breath. EKG showed NSR with non specific ST-T wave changes. Chest Xray-unremarkable. Initial Troponin 0.02, Repeat 0.04. Serial troponin level.Will order stress test and Echo. [place] previous cardiac [place] [facility] Atypical chest pain. Denies chest pain today. Echo done- LV size normal,LVEF 50-55%, Mild MR/TR. RVSP 37 mmHg, no pericardial effusion. Stress test done-fixed small distal anteroseptal apical defect suggestive of previous myocardial infarction.No ischemia. Plan: Cardiac status stable Denies chest pain or shortness of breath Heart rate stable Blood pressure controlled Controlled glucose On Norvasc 10 mg daily,Lisinopril 40 mg daily,Lopressor 25 mg BID, Flomax 0.4 mg daily. Pulmonary on consult GI on consult Out patient EGD as per GI Continue current medications Continue current treatment Chart reviewed Possible discharge Will follow up Plan and treatment discussed with Dr. Ray
[2018-02-07] MEDS: GlipiZIDE 10 mg SR Tab PO SCH (12:03)
[2018-02-07] MEDS: POLYETHYLENE GLYCOL 3350 17 GM/Dose PACKET PO SCH (12:05)
--- NOTE | 2018-02-07 21:28 | CP.PCM.PN ---
Subjective - Date & Time of Evaluation Date of Evaluation: 02/07/18 Time of Evaluation: 14:00 - Subjective Subjective: Feels better No further episodes of chest discomfort No abdominal pain Objective - Vital Signs/Intake and Output Vital Signs (last 24 hours): Temp Pulse Resp BP Pulse Ox 97.8 F 70 20 135/77 95 02/07/18 17:47 02/07/18 17:51 02/07/18 17:47 02/07/18 17:51 02/07/18 17:47 - Medications Medications: Current Medications Albuterol/Ipratropium (Duoneb 3 Mg/0.5 Mg (3 Ml) Ud) 3 ml IH [id number] [facility] Last Admin: 02/07/18 19:36 Dose: 3 ml Amlodipine Besylate (Norvasc) 10 mg PO DAILY [facility] Last Admin: 02/07/18 12:05 Dose: 10 mg Aspirin (Ecotrin) 81 mg PO DAILY [facility] Last Admin: 02/07/18 12:03 Dose: 81 mg Cyanocobalamin (Vitamin B12 1000 Mcg/Ml Inj) 1,000 mcg IM DAILY [facility] Last Admin: 02/07/18 12:05 Dose: 1,000 mcg Glipizide (Glucotrol Xl) 10 mg PO DAILY [facility] Last Admin: 02/07/18 12:03 Dose: 10 mg Hydralazine HCl (Apresoline) 10 mg IVP Q6 PRN PRN Reason: hypertension Insulin Human Regular (Humulin R Low) 0 units SC [facility]; Protocol Last Admin: 02/07/18 17:46 Dose: 2 unit Lisinopril (Zestril) 40 mg PO DAILY [facility] Last Admin: 02/07/18 12:05 Dose: 40 mg Metformin HCl (Glucophage) 850 mg PO BID [facility] Last Admin: 02/07/18 12:03 Dose: 850 mg Metoprolol Tartrate (Lopressor) 25 mg PO BID [facility] Last Admin: 02/07/18 17:51 Dose: 25 mg Pantoprazole Sodium (Protonix Ec Tab) 40 mg PO 0600 [facility] Last Admin: 02/07/18 05:15 Dose: 40 mg Polyethylene Glycol (Miralax) 17 gm PO DAILY [facility] Last Admin: 02/07/18 12:05 Dose: 17 gm Sitagliptin Phosphate (Januvia) 50 mg PO DAILY [facility] Last Admin: 02/07/18 12:04 Dose: 50 mg Tamsulosin HCl (Flomax) 0.4 mg PO DAILY [facility] Last Admin: 02/07/18 12:03 Dose: 0.4 mg - Labs Labs: 02/04/18 06:30 02/04/18 06:30 PT 11.9 SECONDS (9.4-12.5) 02/03/18 17:40 INR 1.04 02/03/18 17:40 APTT 29.1 Seconds (25.1-36.5) 02/03/18 17:40 - Head Exam Head Exam: ATRAUMATIC, NORMOCEPHALIC - Eye Exam Eye Exam: EOMI, PERRL - ENT Exam ENT Exam: Mucous Membranes Moist - Neck Exam Neck Exam: Full ROM. absent: Lymphadenopathy - Respiratory Exam Respiratory Exam: NORMAL BREATHING PATTERN. absent: Respiratory Distress - Cardiovascular Exam Cardiovascular Exam: +S1, +S2. absent: JVD - GI/Abdominal Exam GI & Abdominal Exam: Soft. absent: Tenderness - Extremities Exam Extremities Exam: absent: Calf Tenderness, Pedal Edema - Neurological Exam Neurological Exam: Alert, Oriented x3 Assessment and Plan - Assessment and Plan (Free Text) Assessment: Atypical chest pain epigastric pain Macrocytic anemia Constipation Cardiac workup reviewed Plan: Stool softeners Continue PPI Cardiology workup reviewed Patient would need EGD Discussed with Dr. Carey Patient is noncompliant with followup Hematological followup and followup of the hb Thank you very much for allowing up to participate in the care of the patient
[2018-02-08] MEDS: Albuterol-Ipratrop 3 mg / 0.5 (3 ml) UD IH SCH ×4 (01:27→19:32)
[2018-02-08] MEDS: Pantoprazole 40 mg EC Tab PO SCH (05:39)
[2018-02-08] MEDS: Insulin Reg-LOW-Coverage SC SCH ×4 (08:06→21:33)
--- NOTE | 2018-02-08 08:06 | PN ---
DATE: 02/08/2018 FOLLOWUP NOTE SUBJECTIVE: He is comfortable in bed, in no acute distress. No chest pain. Cardiology workup done. Echo showed normal ejection fraction. No evidence of acute myocardial infarction. He was suggested to have medical management. He has been noncompliant. GI following. CT chest, abdomen, pelvis unremarkable. Hemoglobin 10.1 done on 02/04/2018. Serum protein electrophoresis immunofixation pending. Stool occult blood ordered, not collected yet. MEDICATIONS: DuoNeb, Norvasc 10 mg daily, aspirin 81 mg daily, B12 at 1 mg IM daily, glipizide 10 mg daily, hydralazine 10 mg every 6 p.r.n., insulin, metformin 850 b.i.d., metoprolol 25 b.i.d., Protonix, Flomax 0.4 mg daily, Januvia 50 mg daily. LABORATORY DATA: Labs done on 02/04/2018. Hemoglobin 10.1, hematocrit 28.6, MCV 96, platelet 253, white count 7.4. Glucose 116. PHYSICAL EXAMINATION: GENERAL: Comfortable in bed, in no acute distress. VITAL SIGNS: Temperature 97.8, blood pressure 135/77, respiratory rate is 20 per minute, oxygen saturation 95% on room air, heart rate is 70 per minute. HEENT: Pallor positive. NECK: No lymphadenopathy. CHEST: Air entry present and equal, bilateral. No added sounds. CARDIOVASCULAR: S1, S2 normal. No murmur. No gallop. ABDOMEN: Soft, nontender. No hepatosplenomegaly. EXTREMITY: No edema. SPINE: Nontender. SKIN: No petechiae. No rash. ASSESSMENT AND PLAN: 1. Chronic anemia, B12 deficiency. Iron studies normal. Currently, on B12 IM daily. We will continue that. Serum protein electrophoresis pending. Intrinsic factor antiparietal cell antibody pending. Stool occult blood to be done. CT chest, abdomen and pelvis unremarkable. Possibility of myelodysplasia cannot be ruled out. 2. Renal functions normal. 3. Cardiology workup did not show myocardial infarction, currently stable. Thank you, Dr. Carey for allowing us to participate in Mr. Pamela shanks. Labs ordered for today is CBC, CMP> Katerin Klein MD [facility] # [id number]
--- NOTE | 2018-02-08 08:09 | CP.PCM.PN ---
Subjective - Date & Time of Evaluation Date of Evaluation: 02/08/18 Time of Evaluation: 07:00 - Subjective Subjective: Awake, alert, denies chest pain, no distress,ambulating to bathroom Reason for consultation: Cardiac evaluation of chest pain and shortness of breath,History of hypertension, hypercholesterolemia, diabetes mellitus,amputation of right foot metatarsal. Seen and examined by me and Dr. Ray Objective - Vital Signs/Intake and Output Vital Signs (last 24 hours): Temp Pulse Resp BP Pulse Ox 97.8 F 70 20 135/77 95 02/07/18 17:47 02/07/18 17:51 02/07/18 17:47 02/07/18 17:51 02/07/18 17:47 Intake and Output: 02/08/18 02/08/18 06:59 18:59 Intake Total 240 Output Total 1125 Balance -885 - Medications Medications: Current Medications Albuterol/Ipratropium (Duoneb 3 Mg/0.5 Mg (3 Ml) Ud) 3 ml IH [id number] ON LICENSE OF [facility] Last Admin: 02/08/18 01:27 Dose: 3 ml Amlodipine Besylate (Norvasc) 10 mg PO DAILY ON [facility] OF [facility] Last Admin: 02/07/18 12:05 Dose: 10 mg Aspirin (Ecotrin) 81 mg PO DAILY ON [facility] OF [facility] Last Admin: 02/07/18 12:03 Dose: 81 mg Cyanocobalamin (Vitamin B12 1000 Mcg/Ml Inj) 1,000 mcg IM DAILY ON [facility] OF [facility] Last Admin: 02/07/18 12:05 Dose: 1,000 mcg Glipizide (Glucotrol Xl) 10 mg PO DAILY ON [facility] OF [facility] Last Admin: 02/07/18 12:03 Dose: 10 mg Hydralazine HCl (Apresoline) 10 mg IVP Q6 PRN PRN Reason: hypertension Insulin Human Regular (Humulin R Low) 0 units SC [facility]; Protocol Last Admin: 02/08/18 08:06 Dose: Not Given Lisinopril (Zestril) 40 mg PO DAILY ON [facility] OF [facility] Last Admin: 02/07/18 12:05 Dose: 40 mg Metformin HCl (Glucophage) 850 mg PO BID ON [facility] OF [facility] Last Admin: 02/07/18 12:03 Dose: 850 mg Metoprolol Tartrate (Lopressor) 25 mg PO BID ON [facility] OF [facility] Last Admin: 02/07/18 17:51 Dose: 25 mg Pantoprazole Sodium (Protonix Ec Tab) 40 mg PO 0600 ON [facility] OF [facility] Last Admin: 02/08/18 05:39 Dose: 40 mg Polyethylene Glycol (Miralax) 17 gm PO DAILY ON [facility] Last Admin: 02/07/18 12:05 Dose: 17 gm Sitagliptin Phosphate (Januvia) 50 mg PO DAILY ON [facility] OF [facility] Last Admin: 02/07/18 12:04 Dose: 50 mg Tamsulosin HCl (Flomax) 0.4 mg PO DAILY ON [facility] OF [facility] Last Admin: 02/07/18 12:03 Dose: 0.4 mg - Labs Labs: 02/04/18 06:30 02/04/18 06:30 PT 11.9 SECONDS (9.4-12.5) 02/03/18 17:40 INR 1.04 02/03/18 17:40 APTT 29.1 Seconds (25.1-36.5) 02/03/18 17:40 - Constitutional Appears: Non-toxic, No Acute Distress - Head Exam Head Exam: NORMAL INSPECTION, NORMOCEPHALIC - Eye Exam Eye Exam: Normal appearance - ENT Exam ENT Exam: Mucous Membranes Moist - Respiratory Exam Respiratory Exam: Decreased Breath Sounds, Clear to Ausculation Bilateral, NORMAL BREATHING PATTERN - Cardiovascular Exam Cardiovascular Exam: +S1, +S2 - GI/Abdominal Exam GI & Abdominal Exam: Soft, Normal Bowel Sounds - Exam Additional comments: continent - Extremities Exam Additional comments: right metatarsal amputation - Neurological Exam Neurological Exam: Alert, Awake, Oriented x3 - Psychiatric Exam Psychiatric exam: Normal Affect, Normal Mood - Skin Skin Exam: Intact, Normal Color, Warm Assessment and Plan - Assessment and Plan (Free Text) Assessment: An 82 year old male who came in to the ER due to chest pain and shortness of breath. Mid-sternal chest pain non radiating at rest associated with shortness of breath, denies diaphoresis. claimed to be off and on for the past 2 months. Poor historian. History of hypertension, BPH, hypercho lesterolemia, diabetes mellitus,amputation of right foot metatarsal. Denies chest pain now or shortness of breath. EKG showed NSR with non specific ST-T wave changes. Chest Xray-unremarkable. Initial Troponin 0.02, Repeat 0.04. Serial troponin level.Will order stress test and Echo. No previous cardiac work up at [facility]. Atypical chest pain. Denies chest pain today. Echo done- LV size normal,LVEF 50-55%, Mild MR/TR. RVSP 37 mmHg, no pericardial effusion. Stress test done-fixed small distal anteroseptal apical defect suggestive of previous myocardial infarction.No ischemia.Clinically improved. Plan: Clinically improved Cardiac status stable Denies chest pain or shortness of breath Heart rate stable Blood pressure controlled Controlled glucose On Norvasc 10 mg daily,Lisinopril 40 mg daily,Lopressor 25 mg BID, Flomax 0.4 mg daily. Pulmonary on consult GI on consult Out patient EGD as per GI Continue current medications Continue current treatment Chart reviewed Possible discharge Will follow up Plan and treatment discussed with Dr. Ray
--- NOTE | 2018-02-08 08:19 | PN ---
DATE: 02/05/2018 REASON FOR THE CONSULTATION: Cardiac evaluation for chest pain. SUBJECTIVE: The patient denies any chest pain, shortness of breath or any palpitation. Going for a stress test. Echo done yesterday that revealed ejection fraction 55%, [id number] mitral regurgitation, mild tricuspid regurgitation. So far, no evidence of acute IL. We will follow up stress test. Further recommendation will be made after the stress test result. This note is an addition to the initial progress note dictated by the nurse practitioner. Thank you, Dr. Carey, for providing us the opportunity in taking care of the patient, Alvaro Whalen. Continue Norvasc, continue lisinopril, continue Lopressor 25 b.i.d. We will follow with you. Jenna Ray MD
--- NOTE | 2018-02-08 08:54 | CP.PCM.PN ---
<Wade Shah - Last Filed: 02/08/18 10:12> Subjective - Date & Time of Evaluation Date of Evaluation: 02/08/18 Time of Evaluation: 07:50 - Subjective Subjective: PGY-4 GI Fellow Prog Note Pt lying in bed when seen this AM. Tolerating diet. Reports occasional cough. 5 point ROS negative other than stated above Objective - Vital Signs/Intake and Output Vital Signs (last 24 hours): Temp Pulse Resp BP Pulse Ox 98.3 F 90 20 137/77 94 L 02/08/18 08:21 02/08/18 08:21 02/08/18 08:21 02/08/18 08:21 02/08/18 08:21 Intake and Output: 02/08/18 02/08/18 06:59 18:59 Intake Total 240 Output Total 1125 Balance -885 - Medications Medications: Current Medications Albuterol/Ipratropium (Duoneb 3 Mg/0.5 Mg (3 Ml) Ud) 3 ml IH [id number] [facility] Last Admin: 02/08/18 08:28 Dose: 3 ml Amlodipine Besylate (Norvasc) 10 mg PO DAILY [facility] Last Admin: 02/07/18 12:05 Dose: 10 mg Aspirin (Ecotrin) 81 mg PO DAILY [facility] Last Admin: 02/07/18 12:03 Dose: 81 mg Cyanocobalamin (Vitamin B12 1000 Mcg/Ml Inj) 1,000 mcg IM DAILY [facility] Last Admin: 02/07/18 12:05 Dose: 1,000 mcg Glipizide (Glucotrol Xl) 10 mg PO DAILY [facility] Last Admin: 02/07/18 12:03 Dose: 10 mg Hydralazine HCl (Apresoline) 10 mg IVP Q6 PRN PRN Reason: hypertension Insulin Human Regular (Humulin R Low) 0 units SC [facility]; Protocol Last Admin: 02/08/18 08:06 Dose: Not Given Lisinopril (Zestril) 40 mg PO DAILY [facility] Last Admin: 02/07/18 12:05 Dose: 40 mg Metformin HCl (Glucophage) 850 mg PO BID [facility] Last Admin: 02/07/18 12:03 Dose: 850 mg Metoprolol Tartrate (Lopressor) 25 mg PO BID [facility] Last Admin: 02/07/18 17:51 Dose: 25 mg Pantoprazole Sodium (Protonix Ec Tab) 40 mg PO 0600 [facility] Last Admin: 02/08/18 05:39 Dose: 40 mg Polyethylene Glycol (Miralax) 17 gm PO DAILY [facility] Last Admin: 02/07/18 12:05 Dose: 17 gm Sitagliptin Phosphate (Januvia) 50 mg PO DAILY [facility] Last Admin: 02/07/18 12:04 Dose: 50 mg Tamsulosin HCl (Flomax) 0.4 mg PO DAILY [facility] Last Admin: 02/07/18 12:03 Dose: 0.4 mg - Labs Labs: 02/04/18 06:30 02/04/18 06:30 PT 11.9 SECONDS (9.4-12.5) 02/03/18 17:40 INR 1.04 02/03/18 17:40 APTT 29.1 Seconds (25.1-36.5) 02/03/18 17:40 - Constitutional Appears: Well, Non-toxic, No Acute Distress - Head Exam Head Exam: ATRAUMATIC, NORMAL INSPECTION - Eye Exam Eye Exam: EOMI. absent: Conjunctival injection, Scleral icterus - ENT Exam ENT Exam: Mucous Membranes Moist. absent: Mucous Membranes Dry, Normal External Ear Exam - Respiratory Exam Respiratory Exam: NORMAL BREATHING PATTERN. absent: Accessory Muscle Use, Respiratory Distress - GI/Abdominal Exam GI & Abdominal Exam: Soft, Normal Bowel Sounds. absent: Bruit, Distended, Firm, Guarding, Rigid, Tenderness, Hernia, Mass, Organomegaly, Pulsatile Mass, Rebound Assessment and Plan - Assessment and Plan (Free Text) Assessment: 82 yo Hisp Male with DM2, HTN, HLD presenting with chest pain and shortness of breath. GI consult for possible GERD. # Chest Pain: Atypical. Perhaps related to GERD/GI given worse at night and some relief with water intake. However, given comorbidities and also reported shortness of breath would be more concerned about cardiopulmonary sources as well. No red flag symptoms to warrant urgent EGD upon presentation. Given mary red by cardiology, will plan for EGD as pt with difficult follow-up. # Constipation: Improved. Pt states 3 days since last BM. No bleeding noted. CSPY in August 2016 with diverticulosis and internal hemorrhoids. # Chronic Anemia: Hgb is borderline macrocytic without clear reason. No EtOH nor liver disease. Plan: - Plan for EGD on 02/09/18 - NPO at [place], except meds - Pantoprazole 40 mg PO QD, 30 min before first meal of day - Cardiology evaluated CP/SOB; stress test negative and echo with borderline EF - Miralax daily - Appreciate Heme eval for anemia Pt seen and examined with Dr. Larsen; please see attestation for further recs/changes <Angela Larsen V - Last Filed: 02/08/18 19:28> Objective - Vital Signs/Intake and Output Vital Signs (last 24 hours): Temp Pulse Resp BP Pulse Ox 98.2 F 74 20 131/77 98 02/08/18 16:51 02/08/18 17:47 02/08/18 16:51 02/08/18 17:47 02/08/18 16:51 Intake and Output: 02/08/18 02/09/18 18:59 06:59 Intake Total 900 Output Total 550 Balance 350 - Medications Medications: Current Medications Albuterol/Ipratropium (Duoneb 3 Mg/0.5 Mg (3 Ml) Ud) 3 ml IH [id number] [facility] Last Admin: 02/08/18 13:54 Dose: 3 ml Amlodipine Besylate (Norvasc) 10 mg PO DAILY [facility] Last Admin: 02/08/18 09:51 Dose: 10 mg Aspirin (Ecotrin) 81 mg PO DAILY [facility] Last Admin: 02/08/18 09:52 Dose: 81 mg Cyanocobalamin (Vitamin B12 1000 Mcg/Ml Inj) 1,000 mcg IM DAILY [facility] Last Admin: 02/08/18 09:49 Dose: 1,000 mcg Glipizide (Glucotrol Xl) 10 mg PO DAILY [facility] Last Admin: 02/08/18 09:50 Dose: 10 mg Hydralazine HCl (Apresoline) 10 mg IVP Q6 PRN PRN Reason: hypertension Insulin Human Regular (Humulin R Low) 0 units SC [facility]; Protocol Last Admin: 02/08/18 17:47 Dose: 1 unit Lisinopril (Zestril) 40 mg PO DAILY [facility] Last Admin: 02/08/18 09:50 Dose: 40 mg Metformin HCl (Glucophage) 850 mg PO BID [facility] Last Admin: 02/08/18 17:47 Dose: 850 mg Metoprolol Tartrate (Lopressor) 25 mg PO BID [facility] Last Admin: 02/08/18 17:47 Dose: 25 mg Pantoprazole Sodium (Protonix Ec Tab) 40 mg PO 0600 [facility] Last Admin: 02/08/18 05:39 Dose: 40 mg Polyethylene Glycol (Miralax) 17 gm PO DAILY [facility] Last Admin: 02/08/18 09:50 Dose: 17 gm Sitagliptin Phosphate (Januvia) 50 mg PO DAILY [facility] Last Admin: 02/08/18 09:51 Dose: 50 mg Tamsulosin HCl (Flomax) 0.4 mg PO DAILY [facility] Last Admin: 02/08/18 09:50 Dose: 0.4 mg - Labs Labs: 02/08/18 10:47 02/08/18 10:47 PT 11.9 SECONDS (9.4-12.5) 02/03/18 17:40 INR 1.04 02/03/18 17:40 APTT 29.1 Seconds (25.1-36.5) 02/03/18 17:40 Attending/Attestation - Attestation I have personally seen and examined this patient.: Yes I have fully participated in the care of the patient.: Yes I have reviewed all pertinent clinical information, including history, physical exam and plan: Yes Notes (Text): This is an addendum to GI progress report dictated by the GI Fellow.The patient was seen and examined earlier. Medical records, lab studies, imagings were reviewed. Last 24 hours events reviewed. Agreed with the above treatment plan as outlined in GI Fellow 's notes with the addition of the following Atypical chest pain/epigastric pain Macrocytic anemia B12 deficiency Not compliant with followup for outpatient eval Plan for EGD tomorrow 02/08/18 19:26
--- NOTE | 2018-02-08 08:59 | PN ---
DATE: 02/07/2018 SUBJECTIVE: The patient was seen and examined on the bedside on 02/07/2018, looking comfortable. I am dictating progress note for 02/07/2018. Actually, the patient was sitting on the chair, awake, alert. Denies chest pain. No shortness of breath. No abdominal pain. No fever. No chills. The patient is a very poor historian. PHYSICAL EXAMINATION: VITAL SIGNS: Temperature 97.5, pulse 72, respiratory rate 18, blood pressure 138/73, pulse oximetry 97. HEENT: Head normocephalic, atraumatic. Eyes PERRLA. Extraocular muscles intact. Conjunctivae clear. Nose patent. Mucous membrane moist. NECK: Supple. No carotid bruit. No JVD or thyromegaly. CHEST: Bilaterally symmetrical. HEART: S1 and S2 positive. LUNGS: Clear to auscultation. ABDOMEN: Soft. Bowel sounds positive. No organomegaly. EXTREMITIES: No edema. No cyanosis. NEUROLOGICAL: The patient is awake and alert. Follows simple commands. MEDICATIONS: DuoNeb, Norvasc, Ecotrin, cyanocobalamin, glipizide, hydralazine, Zestril, Glucophage, Lopressor, Protonix, MiraLax, Januvia, Flomax. LABORATORY DATA: White blood cells 7.4, hemoglobin 10.1, hematocrit 28.3, platelets 253. Sodium 138, potassium 4.1, BUN 27, creatinine 1.2, glucose 85. ASSESSMENT AND PLAN: Mrs. Alvaro Whalen, 82-year-old male with anemia. Came with chest pain, shortness of breath, history of hypertension, benign prostatic hypertrophy, hypercholesterolemia, diabetes mellitus, amputation of the right foot metatarsals, normal sinus rhythm with nonspecific ST-T wave changes are in EKG. According to metal reclamation kettle tender, chest pain is atypical. Stress test done shows fixed small distal anteroseptal apical defect suggestive of previous myocardial infarction. No recent ischemia as per metal reclamation kettle tender. Continue Norvasc, lisinopril, Lopressor, Flomax. We will try to do Transitional Care Unit for the patient. The patient is deconditioned. History of constipation. MiraLax advised. Continue bronchodilators. Out of bed, physical therapy. We will try to do Transitional Care Unit. We will follow up. Luisa Carey MD [facility] # [id number]
--- NOTE | 2018-02-08 09:01 | PN ---
DATE: 02/07/2018 PULMONARY PROGRESS NOTE REFERRING PHYSICIAN: Luisa Carey MD SUBJECTIVE: He is lying in the bed, head at 45 degrees. is at bedside. Night was unremarkable, was constipated but did go today and feels better. No more abdominal pain. No chest pain. Gets short of breath with exertion. No leg pain or leg swelling. OBJECTIVE: GENERAL: In no acute distress. VITAL SIGNS: Temperature is 98, heart rate 72, respiratory rate 18, blood pressure 138/73, pulse oximetry 97% on room air. HEENT: Moist mucous membranes. Crowded airway. NECK: Supple. No JVD. LUNGS: Have a fair airflow with few rhonchi. HEART: S1 and S2. ABDOMEN: Soft and nontender. No organomegaly. EXTREMITIES: No edema. NEUROLOGICAL: Awake and alert. Follows simple command. MEDICATIONS: He is on hydralazine 10 mg every 6 hours p.r.n., DuoNeb every 6 hours, Ecotrin 81 mg daily, Flomax 0.4 mg daily, metformin 850 mg twice a day, glipizide 10 mg daily, insulin coverage, Januvia 50 mg daily, metoprolol tartrate 25 mg twice a day, MiraLax 17 g twice a day, Norvasc 10 mg daily, Protonix 40 mg daily, vitamin B12 1000 IM daily and Zestril 40 mg daily. LABORATORY DATA: Reviewed, noted. Blood sugar is 148. IMPRESSION AND PLAN: Anemia, diabetes, hyperlipidemia, right foot amputation in the past, B12 deficiency, constipation. Abnormal Persantine-Thallium, rule out lung disease. Pulmonary point of view, doing well. Spoke to at bedside. All the questions answered. Upon discharge, patient will need sleep study and also pulmonary function test. Fall precaution. Thank you and we will follow with you. Jenna Chase MD
--- NOTE | 2018-02-08 09:02 | PN ---
DATE: 02/07/2018 REASON FOR CONSULTATION: Followup for chest pain. SUBJECTIVE: The patient underwent noninvasive workup, essentially negative. Negative stress test. Fixed defect. No reversible ischemia. Preserved LV function. RECOMMENDATION: Continue current treatment. Continue Norvasc. Continue lisinopril. Continue Flomax. This note is in addition to note dictated by the nurse practitioner. The patient stable. Telemetry is discontinued. Consider GI workup because of the patient's low hemoglobin and epigastric pain. Jenna Ray MD
[2018-02-08] MEDS: GlipiZIDE 10 mg SR Tab PO SCH (09:50)
[2018-02-08] MEDS: POLYETHYLENE GLYCOL 3350 17 GM/Dose PACKET PO SCH (09:50)
[2018-02-08 11:03] LABS: BASO # 0.05 K/mm3 (0.0-2.0); BASO % 0.8 % (0.0-3.0); EOS # 0.2 (0.0-0.7); EOS % 3.2 % (1.5-5.0); GRAN # 3.89 (1.4-6.5); GRAN % 59.3 % (50.0-68.0); HEMOGLOBIN 9.4 g/dL (14.0-18.0); LYMPH # 1.5 (1.2-3.4); LYMPH % 23.3 % (22.0-35.0); MEAN CELL VOLUME 98.2 fl (80.0-105.0); MEAN CORPUSCULAR HEMOGLOBIN 33.7 pg (25.0-35.0); MEAN CORPUSCULAR HGB CONC 34.3 g/dl (31.0-37.0); MEAN PLATELET VOLUME 10.5 fl (7.0-11.0); MONO # 0.9 (0.1-0.6); MONO % 13.4 % (1.0-6.0); RBC 2.79 10^6/uL (3.5-6.1); RED CELL DISTRIBUTION WIDTH 12.9 % (11.5-14.5); WHITE BLOOD COUNT 6.6 10^3/ul (4.5-11.0)
[2018-02-08 20:49] LABS: ALBUMIN (PEP) 3.8 g/dL (3.8-4.8); ALPHA-1-GLOBULIN (PEP) 0.3 g/dL (0.2-0.3)
--- NOTE | 2018-02-08 23:24 | PN ---
DATE: 02/08/2018 PULMONARY PROGRESS NOTE REFERRING PHYSICIAN: Luisa Carey MD SUBJECTIVE: He is out of bed to chair, feels better. No headache, no rhinitis. No nausea, no vomiting, decreased abdominal pain. No leg pain or leg swelling. Still has a constipation with hard stool. OBJECTIVE: GENERAL: In no acute distress. VITAL SIGNS: Temperature is 98, heart rate 74, respiratory rate is 20, blood pressure 131/77, pulse of 98% room air. HEENT: Moist mucous membranes. Crowded airway. NECK: Supple. No JVD. LUNGS: Have a fair airflow with rhonchi. HEART: S1 and S2. ABDOMEN: Soft, nontender. No organomegaly. EXTREMITIES: No edema. NEUROLOGIC: Awake and alert. Follows simple command. MEDICATIONS: He is on hydralazine 10 mg every 6 hour p.r.n., DuoNeb every 6 hour [id number], Ecotrin 81 mg daily, Flomax 0.4 mg daily, metformin 850 mg twice a day, glipizide XL 10 mg daily, insulin coverage, Januvia 50 mg daily, metoprolol tartrate 25 mg twice a day, MiraLax 17 g daily, Norvasc 10 mg daily, Protonix 40 mg daily, vitamin B 12,000 mcg IM daily, Zestril 14 mg daily. LABORATORY DATA: Shows hemoglobin 9.4, hematocrit 27.4, WBC 6.6, platelet count is 257, sodium is 132, potassium 4.6, chloride 96, bicarbonate 27, BUN 28, creatinine 1.4, glucose 168, calcium is 9. IMPRESSION AND PLAN: Anemia, diabetes, hyperlipidemia, right foot amputation, B12 deficiency, constipation, being followed by Hematology/Oncology as outpatient, sleep study and PFT and GI workup is in progress. Thank you and we will follow with you. Jenna Chase MD
[2018-02-09] MEDS: Albuterol-Ipratrop 3 mg / 0.5 (3 ml) UD IH SCH ×3 (02:09→13:59)
--- NOTE | 2018-02-09 03:09 | PN ---
DATE: 02/08/2018 The patient is an 82-year-old male. SUBJECTIVE: The patient was seen and examined at the bedside on 02/08/2018, looking comfortable. Sitting on the chair. No nausea, vomiting, or diarrhea. No hematuria or hematochezia. No swelling of the legs. No chest pain. No palpitations. PHYSICAL EXAMINATION: VITAL SIGNS: Temperature 97.8, blood pressure 134/77, respiratory rate 20, oxygen saturation 95% on room air, heart rate 70. HEENT: Head is normocephalic and atraumatic. Eyes; PERRLA. Extraocular muscles intact. Conjunctivae clear. Nose patent. Mucous membranes moist. NECK: Supple. No carotid bruit. No JVD or thyromegaly. CHEST: Bilaterally symmetrical. HEART: S1 and S2 positive. LUNGS: Clear to auscultation. ABDOMEN: Soft. Bowel sounds are present. No organomegaly. EXTREMITIES: No edema. No cyanosis. NEUROLOGIC: The patient is awake and alert. Moving all 4 extremities. No focal deficits. MEDICATIONS: DuoNeb, aspirin, B12, glipizide, hydralazine, insulin, metformin, metoprolol, Protonix, Flomax, Januvia. LABORATORY DATA: We do not have recent labs today, but I reviewed old labs. Hemoglobin 10.1, hematocrit 28.6, platelets 253, white blood cell 7.4. Glucose 116. ASSESSMENT AND PLAN: Mr. Alvaro Whalen is an 82-year-old male, has chronic anemia, B12 deficiency, iron studies normal, continue B12. Serum protein electrophoresis is pending. Intrinsic factor anti-parietal cell antibody is pending. Stool occult blood done. CT chest, abdomen, and pelvis unremarkable. Possibly, myelodysplasia had not be ruled out. Renal function test is normal. Cardiology workup showed no myocardial infarction. Discussion done with Dr. Larsen and the patient was seen by the lobsterman also. Occasionally coughs especially when he is eating, when he is lying down. Had history of diabetes mellitus, hypertension, hypercholesterolemia, came with chest pain and shortness of breath. According to lobsterman, chest pain is atypical, perhaps related to gastrointestinal reflux disease or GI etiology, worse in night and has some relief with water intake. Shortness of breath especially at night when he is sleeping. The patient is going for EGD tomorrow because workup for him as outpatient is very problem because the patient is very, very noncompliant. He never went for the EGD and colonoscopy. Constipation improved. The patient has history of internal hemorrhoids. N.p.o. after midnight except meds. Discussion done with Dr. Larsen. Continue pantoprazole. MiraLax 17 g every day. After endoscopy, if everything is okay, the patient will go home in the evening. Follow up as an outpatient. Luisa Carey MD
[2018-02-09] MEDS: Pantoprazole 40 mg EC Tab PO SCH (05:44)
[2018-02-09] MEDS: Insulin Reg-LOW-Coverage SC SCH ×2 (08:29→13:21)
--- NOTE | 2018-02-09 08:30 | PN ---
DATE: 02/08/2018 This note is an addendum to initial progress note. REASON FOR CONSULTATION AND FOLLOWUP: Chest pain. SUBJECTIVE: Patient denies any chest pain, shortness of breath or any palpitation. Patient underwent stress test. Normal stress test, no reversible ischemia. Continue aggressive medical treatment. Continue Norvasc. Continue lisinopril. Continue Flomax. CVS status is stable. We will sign off and glad to follow up p.r.n. Patient has echo also done that showed ejection fraction 50% to 55%, trace to mild mitral regurgitation, mild tricuspid regurgitation, right ventricular systolic pressure 37. No further cardiac workup is planned or warranted. Thank you, Dr. Carey, for providing us the opportunity in taking care of the patient, Aiden Whalen. Jenna Ray MD
[2018-02-09] MEDS ORDERED: Sodium Chloride 0.9% 1,000 ML IV SCH ×2 (09:15→12:00)
[2018-02-09] MEDS: POLYETHYLENE GLYCOL 3350 17 GM/Dose PACKET PO SCH ×2 (10:26→10:31)
[2018-02-09] MEDS: GlipiZIDE 10 mg SR Tab PO SCH (10:26)
[2018-02-09 11:13] VITALS: O2SAT 99
[2018-02-09] MEDS ORDERED: Lidocaine PF 2% (5 ml) Inj (For Cardiac Arrhy) ONE (11:26)
[2018-02-09 12:07] VITALS: TEMP 98.4
[2018-02-09 12:40] VITALS: BP 122/56; PULSE 67; RESP 17
[2018-02-10 16:47] LABS: PARIETAL CELL AB TITER 1:40 Titer (< 1:20)
--- NOTE | 2018-03-28 23:34 | DS ---
02/09/18 The patient was seen and examined at bedside on 02/09/2018. CHIEF COMPLAINT: Chest pain, shortness of breath. HISTORY OF PRESENT ILLNESS: Mr. Alvaro Whalen is an 82-year-old male with past medical history of multiple medical problems, diabetes mellitus, hypertension, amputation of toes, constipation, was seen in my office and I sent the patient to the emergency room. The patient is very noncompliant as an outpatient for medications and visits. History of anemia. Denies fever, chills, but has chest pain and shortness of breath. We admitted the patient, seen by GI. CAT scan of the chest, abdomen and pelvis done. Seen by the cad manager. Discussion done with Dr. Larsen. Echocardiography done. Stress test done. Endoscopy done by Dr. Larsen. Seen by Dr. Chase, Dr. Ray. Dr. Katerin Klein, real estate internship, saw the patient. The patient improved, discharged to home. Follow up with all those consultants. Urged to be compliant. PAST MEDICAL HISTORY: Hypertension, diabetes mellitus, amputation of the toes, constipation, noncompliant. FAMILY HISTORY: Father and mother, noncontributory. HABITS: No smoking, no drugs, no ethanol. ALLERGIES: THE PATIENT IS NOT ALLERGIC TO ANY MEDICATIONS. REVIEW OF SYSTEMS: The patient was seen and examined at the bedside, looking comfortable. No fever, no chills. No headache, no dizziness. No chest pain or palpitation. Shortness of breath is better. No hematuria or hematochezia. PHYSICAL EXAMINATION: VITAL SIGNS: Temperature 98.4, pulse 67, blood pressure 127/56, respiratory rate 17. HEENT: Head normocephalic, atraumatic. Eyes, PERRLA. Extraocular muscles intact. Conjunctivae clear. Nose is patent. Mucous membranes moist. NECK: Supple. No carotid bruit. No JVD or thyromegaly. CHEST: Bilaterally symmetrical. HEART: S1, S2 positive. LUNGS: Clear to auscultation. ABDOMEN: Soft. Bowel sounds present. No organomegaly. EXTREMITIES: No edema, no cyanosis. NEUROLOGIC: The patient is awake, alert. Follows simple commands. LABORATORY DATA: White blood cell 6.6, hemoglobin 9.4, hematocrit 27.4, platelets 257. Sodium 132, potassium 4.6, BUN 20, creatinine 1.4, glucose 152. Random glucose 160. Calcium 9.0. ASSESSMENT AND PLAN: Mr. Alvaro Whalen is an 82-year-old male with anemia, hyperchloremia, renal insufficiency, diabetes mellitus, amputation of the toes in the past, hypercholesterolemia, B12 deficiency, constipation. Dr. Klein is on the case for anemia workup. The patient went for endoscopy, that was the part of anemia workup also by Dr. Larsen. Serum protein electrophoresis is done. Intrinsic factor, anti-parietal cell antibodies done. CT scan for abdomen and pelvis unremarkable, possibly myelodysplasia. Renal function test is normal. Cardiology also saw the patient. Stress test done. Constipation improved. The patient has internal hemorrhoids. Continue pantoprazole, MiraLax. Gastrointestinal and deep venous thrombosis. Repeat labs. We will follow up. Luisa Carey MD MTDD
== END 2018-02-09 17:37 | disposition home or self-care (01) ==
LOC: ED 17:09 → INTOOBSV 18:33 → ERH 18:33 → 2RNO 02-04 00:07 → 3RNO 02-06 15:54
PROVIDERS: ADMIT Internal Medicine Pulmonary Disease; ATTEND Internal Medicine
DX: R07.89 Other chest pain (principal); D53.9 Nutritional anemia, unspecified; D63.8 Anemia in other chronic diseases classified elsewhere; D75.89 Other specified diseases of blood and blood-forming organs; E11.51 Type 2 diabetes mellitus with diabetic peripheral angiopathy without gangrene; E11.65 Type 2 diabetes mellitus with hyperglycemia; E53.8 Deficiency of other specified B group vitamins; E78.00 Pure hypercholesterolemia, unspecified; E78.5 Hyperlipidemia, unspecified; I10 Essential (primary) hypertension; I25.2 Old myocardial infarction; K21.9 Gastro-esophageal reflux disease without esophagitis; K64.8 Other hemorrhoids; K59.00 Constipation, unspecified; K57.90 Diverticulosis of intestine, part unspecified, without perforation or abscess without bleeding; N28.9 Disorder of kidney and ureter, unspecified; N40.0 Benign prostatic hyperplasia without lower urinary tract symptoms; Z79.84 Long term (current) use of oral hypoglycemic drugs; Z79.899 Other long term (current) drug therapy; Z91.19 Patient's noncompliance with other medical treatment and regimen; Z89.431 Acquired absence of right foot; I08.1 Rheumatic disorders of both mitral and tricuspid valves
CPT/HCPCS: 36415; 43239; 71045; 71250; 74176; 78452; 80048; 80053; 80061; 81001; 82550; 82607; 82746; 82948; 83036; 83540; 83550; 83615; 83735; 83880; 83883; 83930; 83935; 84155; 84165; 84300; 84443; 84484; 85025; 85027; 85610; 85730; 86255; 86334; 86340; 88305; 88342; 93005; 93017; 93306; 94640; 94760; 96372; 96374; 99285; A9502; G0378; J2785; J3010; J3420; J7030